=== PATIENT | female | born 1955 | race Caucasian/White ===

== ENCOUNTER 2016-10-24 06:01 | Day surgery (SDC) | payer MEDICARE ==
[~2016-10-24 06:01] MED LIST: Lactated Ringers 1,000 ML IV SCH
[2016-10-24] MEDS ORDERED: DIPRIVAN 200 MG/20 ML IV ONE (08:00)
[2016-10-24] MEDS ORDERED: Versed 2 MG/2 ML Injection IV ONE (08:00)
[2016-10-24 08:21] VITALS: PULSE 77; O2SAT 98
[2016-10-24 08:50] VITALS: BP 154/104
--- NOTE | 2016-10-24 09:12 | OP ---
SURGERY DATE/TIME: 10/24/2016717 PREOPERATIVE DIAGNOSIS: History of colon polyps. POSTOPERATIVE DIAGNOSIS: Rectal polyp. PROCEDURE: Colonoscopy with polypectomy. SURGEON: Dr. Mcdowell. ANESTHESIA: MAC. Medications given by anesthesia department. HISTORY: The patient is a 61 year-old white female presenting now for repeat colonoscopy. She reports that she has had two other procedures performed previously when she lived in [place]. The patient was felt the need to have re-investigation at this time. She was reappraised of the risks of the procedure including the risk of perforation, phlebitis, untoward reaction to medication, bleeding, and missed lesions. The patient verbalized her understanding and desired to have the procedure performed. DESCRIPTION OF PROCEDURE: The patient was given the medications by the anesthesia department. She had continuous pulse oximetry, ECG monitoring, intermittent blood pressure monitoring, and tidal CO2 monitoring during the examination. She was placed in the left lateral decubitus position. A digital rectal examination was performed and revealed normal anal sphincter tone and no masses. The flexible Olympus pediatric colonoscope was used to intubate the rectum. A view of the colon was developed sequentially to the cecum. Upon insertion and withdrawal, including a retroflex view in the rectum, there was noted one polyp in the rectum this measured approximately 1 cm in diameter. It was removed using polypectomy snare with cold technique. The polyp was obtained for pathologic evaluation. The scope was removed from the patient who tolerated the procedure well and was sent back to OP recovery in good condition. The prep was noted to be fair to good.
== END 2016-10-24 08:50 | disposition home or self-care (01) ==
LOC: SDC 06:01
PROVIDERS: ATTEND Family Medicine
PROC: 0DBP8ZX Excision of Rectum, Via Natural or Artificial Opening Endoscopic, Diagnostic (ICD-10-PCS; principal; 2016-10-24)
DX: K62.1 Rectal polyp (principal); I10 Essential (primary) hypertension; F41.9 Anxiety disorder, unspecified; E78.5 Hyperlipidemia, unspecified
CPT/HCPCS: 00810; 36415; 88305; J2250; J2704

== ENCOUNTER 2023-06-10 09:57 | Inpatient (IN) | payer MEDICARE ==
[2023-06-10] MEDS ORDERED: NORCO 5/325 MG PO ONE (10:20)
--- NOTE | 2023-06-10 10:30 | ERPHSYRPT ---
- History of Present Illness Time Seen by Provider: 06/10/23 10:15 Source: patient Exam Limitations: no limitations Patient Subjective Stated Complaint: pt here for pain to left foot since , no injury, pt has hx of surg on foot Triage Nursing Assessment: pt alert, walked in with a limp. resp easy, skin w.d.p, has open draining wound to left heel with swelling and redness. Physician History: 68yo f presents for 3d left heel pain w/ oozing wound. Pt reports she had a large blister on the heel that she popped w/ a needle on 06/07, woke up on 06/08 w/ sharp pain in the heel and yellow/green discharge from the wound. Pt states she is able to ambulate w/o much pain, does report pain when the area is rubbed by her shoe. Pt denies any fevers, pain in the foot or lower leg, cp, soa, n/v. Pt reports distant hx (>10yrs) of unknown surgical procedure on the left foot by podiatry. Method of Injury: other (popped blister w/ needle) Occurred: days ago (3) Quality: intermittent, stabbing Severity of Pain-Max: moderate Severity of Pain-Current: mild Lower Extremities Pain: heel: left Modifying Factors: Improves With: immobilization. Worsens With: movement Associated Symptoms: none Body Map: 1 - ulceration over left heel roughly [id number] Allergies/Adverse Reactions: No Known Drug Allergies Allergy (Verified 06/10/23 10:01) Home Medications: Atorvastatin Calcium [Lipitor] 40 mg PO HS 10/24/16 [History] Propranolol HCl [Innopran Xl] 120 mg PO DAILY 10/24/16 [History] Amlodipine Besylate 5 mg [Norvasc 5 mg] 1 ea DAILY 06/10/23 [History] Gabapentin [Neurontin ] 100 mg PO BID 06/10/23 [History] Levothyroxine Sodium 88 Mcg [Synthroid 88 Mcg] 88 mcg PO DAILY 06/10/23 [History] Lisinopril 10 mg [Zestril 10 MG] 10 mg PO DAILY 06/10/23 [History] Ubidecarenone [Coenzyme Q10] 100 mg PO BID 06/10/23 [History] Umeclidinium Brm/Vilanterol Tr [Anoro Ellipta 62.5-25 Mcg INH] 1 each IH DAILY 06/10/23 [History] Hx Tetanus, Diphtheria Vaccination/Date Given: No Hx Influenza Vaccination/Date Given: Yes Hx Pneumococcal Vaccination/Date Given: No Immunizations Up to Date: Yes Travel Risk - International Travel Have you traveled outside of the country in past 3 weeks: No - Coronavirus Screening Are you exhibiting any of the following symptoms?: No Close contact with a COVID-19 positive Pt in past 14-21 Days: No - Vaccine Status Have you recieved a Covid-19 vaccination: No - Review of Systems Constitutional: No Fever, No Chills, No Fatigue Respiratory: No Cough, No Dyspnea, No Wheezing Cardiac: No Chest Pain, No Edema Abdominal/Gastrointestinal: No Symptoms Genitourinary Symptoms: No Symptoms Skin: Skin Lesions, No Cellulitis, No Decubiti, No Rash - Past Medical History Pertinent Past Medical History: Yes Neurological History: Migraines ENT History: Cataracts Cardiac History: High Cholesterol, Hypertension Respiratory History: Asthma, COPD Endocrine Medical History: No Pertinent History Musculoskeletal History: Arthritis GI Medical History: No Pertinent History History: No Pertinent History Psycho-Social History: Anxiety, Depression Female Reproductive Disorders: No Pertinent History Other Medical History: bone spurs - Past Surgical History Past Surgical History: Yes Neuro Surgical History: No Pertinent History Cardiac: No Pertinent History Respiratory: No Pertinent History Gastrointestinal: Appendectomy, Cholecystectomy Genitourinary: No Pertinent History Musculoskeletal: No Pertinent History Female Surgical History: Tubal Ligation Other Surgical History: both feet bone spurs, cysts removed - Social History Smoking Status: Current every day smoker How long have you smoked: over 10 ye Exposure to second hand smoke: Yes Drug Use: marijuana Patient Lives Alone: No - Nursing Vital Signs Nursing Vital Signs: Initial Vital Signs Temperature 97.1 F 06/10/23 10:08 Pulse Rate 79 06/10/23 10:08 Respiratory Rate 18 06/10/23 10:08 Blood Pressure 163/79 06/10/23 10:08 O2 Sat by Pulse Oximetry 97 06/10/23 10:08 Pain Scale Pain Intensity 7 - Physical Exam General Appearance: no apparent distress, alert Cardiovascular/Respiratory Exam: chest non-tender, normal breath sounds, regular rate/rhythm Legs Exam: left leg: non-tender, normal inspection, normal range of motion, no evidence of injury Knees Exam: left knee: non-tender, normal inspection, normal range of motion, no evidence of injury Ankle Exam: left ankle: non-tender, normal range of motion, no evidence of injury, ecchymosis (swelling over posterior aspect of lateral malleolous) Foot Exam: left foot: abrasions/lacerations (2x2cm round area of ulcerated skin, darkened wound edges, approximately .5cm deep, moderate serosanguinous drainage ) Mental Status Exam: alert, oriented x 3 Skin Exam: abrasion, ecchymosis SpO2 Interpretation: normal SpO2: 97 O2 Delivery: Room Air Ordered Tests: Active Orders 24 hr Category Date Time Status Wound Care ROUTINE Care 06/10/23 10:17 Active ANKLE (3 VIEWS) Stat Exams 06/10/23 10:37 Taken FOOT (MINIMUM 3 VIEWS) Stat Exams 06/10/23 10:37 Taken CBC W DIFF Stat Lab 06/10/23 10:25 Completed CMP Stat Lab 06/10/23 10:25 Completed CULTURE,WOUND Stat Lab 06/10/23 11:59 Ordered Erythrocyte Sedimentation Rate Stat Lab 06/10/23 10:25 Completed Medication Summary Generic Name Dose Route Start Last Admin Trade Name Freq PRN Reason Stop Dose Admin Vancomycin HCl 1 gm in 200 mls @ 125 mls/hr 06/10/23 13:30 Vancomycin 1 Gram/200 Ml Bag IV 07/10/23 13:29 Q12H KARMEN Discontinued Medications Generic Name Dose Route Start Last Admin Trade Name Freq PRN Reason Stop Dose Admin Hydrocodone Bitart/Acetaminophen 1 tab 06/10/23 10:20 06/10/23 10:34 Hydrocodone/Apap 5/325 1 Tab Tablet PO 06/10/23 10:21 1 tab STAT ONE Administration Hydrocodone Bitart/Acetaminophen Confirm 06/10/23 10:32 Hydrocodone/Apap 5/325 1 Tab Tablet Administered 06/10/23 10:33 Dose 1 tab .ROUTE .STK-MED ONE Hydrocodone Bitart/Acetaminophen Confirm 06/10/23 10:33 Hydrocodone/Apap 5/325 1 Tab Tablet Administered 06/10/23 10:34 Dose 1 tab .ROUTE .STK-MED ONE Bacitracin Zinc Confirm 06/10/23 10:50 Bacitracin Packet 1 Each Pckt Administered 06/10/23 10:51 Dose 1 each .ROUTE .STK-MED ONE Lab/Rad Data: Laboratory Result Diagrams 06/10/23 10:25 06/10/23 10:25 Laboratory Results 06/10/23 06/10/23 06/10/23 Range/Units 10:25 10:25 10:25 WBC 12.5 H (4.0-10.5) x10^3/uL RBC 4.72 (4.1-5.4) x10^6/uL Hgb 14.8 (12.0-16.0) g/dL Hct 44.5 (35-47) % MCV 94.3 (78-100) fL MCH 31.4 (26-32) pg MCHC 33.3 (32-36) g/dL RDW 12.5 (11.5-14.0) % Plt Count 225 (150-450) x10^3/uL MPV 10.2 (7.5-11.0) fL Gran % 73.1 H (36.0-66.0) % Immature Gran % (Auto) 0.5 H (0.00-0.4) % Nucleat RBC Rel Count 0.0 (0.00-0.1) % Eos # (Auto) 0.16 (0-0.5) x10^3/uL Immature Gran # (Auto) 0.06 H (0.00-0.03) x10^3u/L Absolute Lymphs (auto) 1.51 (1.0-4.6) x10^3/uL Absolute Monos (auto) 1.59 H (0.0-1.3) x10^3/uL Absolute Nucleated RBC 0.00 (0.00-0.01) x10^3u/L Lymphocytes % 12.0 L (24.0-44.0) % Monocytes % 12.7 H (0.0-12.0) % Eosinophils % 1.3 (0.00-5.0) % Basophils % 0.4 (0.0-0.4) % Absolute Granulocytes 9.17 H (1.4-6.9) x10^3/uL Basophils # 0.05 (0-0.4) x10^3/uL ESR 92 H (0-20) mm/hr Sodium 135 L (137-145) mmol/L Potassium 4.0 (3.5-5.1) mmol/L Chloride 102 (98-107) mmol/L Carbon Dioxide 23 (22-30) mmol/L Anion Gap 14.3 (5-15) MEQ/L BUN 22 H (7-17) mg/dL Creatinine 1.44 H (0.52-1.04) mg/dL Estimated GFR 39.9 ML/MIN Glucose 112 H (74-106) mg/dL Calcium 9.6 (8.4-10.2) mg/dL Total Bilirubin 1.20 (0.2-1.3) mg/dL AST 22 (14-36) U/L ALT 21 (0-35) U/L Alkaline Phosphatase 122 (38-126) U/L Serum Total Protein 6.8 (6.3-8.2) g/dL Albumin 4.0 (3.5-5.0) g/dL - Progress Progress: unchanged Progress Note: 06/10/23 12:31 xr foot showed concern for osseous deterioration of posterior calcaneous, concern for osteomyelitis in setting of elevated wbc and ESR plan for admission for IV vancomycin and evaluation by podiatry 06/10/23 13:25 Dr Moulton accepting, vancomycin started Will see patient in: hospital (observation) Counseled pt/family regarding: lab results, diagnosis, need for follow-up, rad results Medical Desision Making - Discussion of managment Care discussed with:: hospitalist Reviewed:: Test results, Need for additional workup Agreed on:: Treatment plan, decision to admit Will see patient: in hospital - Diagnostic Testing Diagnostic test were ordered, analyzed, and reviewed by me: Yes Radiological Interpretation: Interpreted by me - Risk of complications The pt has a mod risk of morbidity or mortality based on: Need for prescription drug management, Need for minor surgical intervention in patient with know risk factors - Departure Departure Disposition: In-patient Admission Clinical Impression: Osteomyelitis Qualifiers: Osteomyelitis type: other acute Osteomyelitis location: foot Laterality: left Qualified Code(s): M86.172 - Other acute osteomyelitis, left ankle and foot Condition: Stable Critical Care Time: No Referrals: RICKEY GUZMAN DO [Primary Care Provider] - Follow up/PCP as directed
[2023-06-10] MEDS ORDERED: NORCO 5/325 MG ONE ×2 (10:32→10:33)
[2023-06-10 10:45] LABS: Absolute Neutrophil Ct (ANC) 9.17 x10^3/uL (1.4-6.9); BASOPHIL % 0.4 % (0.0-0.4); Basophil (Absolute #) 0.05 x10^3/uL (0-0.4); Eosinophil % 1.3 % (0.00-5.0); Eosinophil (Absolute #) 0.16 x10^3/uL (0-0.5); Hematocrit 44.5 % (35-47); Hemoglobin 14.8 g/dL (12.0-16.0); IMMATURE GRAN # 0.06 x10^3u/L (0.00-0.03); IMMATURE GRAN % 0.5 % (0.00-0.4); Lymphocyte (Absolute #) 1.51 x10^3/uL (1.0-4.6); Mean Cell Volume 94.3 fL (78-100); Mean Corpuscular Hemoglobin 31.4 pg (26-32); Mean Corpuscular Hgb Concent. 33.3 g/dL (32-36); Mean Platelet Volume 10.2 fL (7.5-11.0); Monocyte (Absolute #) 1.59 x10^3/uL (0.0-1.3); Monocytes % 12.7 % (0.0-12.0); Neutrophil % 73.1 % (36.0-66.0); Platelet Count 225 x10^3/uL (150-450); Red Blood Count 4.72 x10^6/uL (4.1-5.4); Red Cell Distribution Width 12.5 % (11.5-14.0); White Blood Count 12.5 x10^3/uL (4.0-10.5)
[2023-06-10] MEDS ORDERED: BACIGUENT PACKET ONE (10:50)
[2023-06-10 10:51] LABS: ANION GAP 14.3 MEQ/L (5-15); BILIRUBIN,TOTAL 1.2 mg/dL (0.2-1.3); Calcium 9.6 mg/dL (8.4-10.2); Creatinine 1 1.44 mg/dL (0.52-1.04); EST GLOMERULAR FILTRATION RATE 39.9 ML/MIN; Total Protein 6.8 g/dL (6.3-8.2)
[2023-06-10] MEDS: VANCOMYCIN 1 GRAM/200 ML BAG 1 GM/200 ML PIGGYBACK IV SCH (13:36)
--- NOTE | 2023-06-10 14:33 | PCM.HP ---
<GILLIAN HAYNES - Last Filed: 06/10/23 15:29> History of Present Illness - Chief Complaint Chief Complaint: left foot pain, veena Date: 06/10/23 History of Present Illness: is a 68 year old female with PMHX of hyperlipidemia, HTN, neuropathy, and hypothyroidism. She presented to the ER today for 3d left heel pain w/ oozing wound. Pt reports she had a large blister on the heel that she popped w/ a needle on 06/07, woke up on 06/08 w/ sharp pain in the heel and yellow/green discharge from the wound. Pt states she is able to ambulate w/o much pain, does report pain when the area is rubbed by her shoe. Pt denies any fevers, pain in the foot or lower leg, cp, SOB, n/v/d. Pt reports distant hx (>10yrs) of unknown surgical procedure on the left foot by podiatry. XR of foot and ankle pending. Pt started on vancomycin in ER. Wound culture pending. - Review of Systems Constitutional: No Fever, No Chills Eyes: No Symptoms Ears, Nose, & Throat: No Symptoms Respiratory: No Cough, No Short Of Breath Cardiac: Edema (edema of LLE), No Chest Pain, No Syncope Abdominal/Gastrointestinal: No Abdominal Pain, No Nausea, No Vomiting, No Diarrhea Genitourinary Symptoms: No Dysuria Musculoskeletal: No Back Pain, No Neck Pain Skin: Skin Lesions (left foot heel open areas with drainage), No Rash Neurological: No Dizziness, No Focal Weakness, No Sensory Changes Psychological: No Symptoms Endocrine: No Symptoms Hematologic/Lymphatic: No Symptoms Immunological/Allergic: No Symptoms Medications & Allergies Home Medications: Home Medication List Atorvastatin Calcium [Lipitor] 40 mg PO HS 10/24/16 [History Confirmed 06/10/23] Propranolol HCl [Innopran Xl] 120 mg PO DAILY 10/24/16 [History Confirmed 06/10/23] Albuterol Sulfate [Proair Digihaler] 90 mcg IH Q6H PRN 06/10/23 [History Confirmed 06/10/23] Amlodipine Besylate 5 mg [Norvasc 5 mg] 1 ea DAILY 06/10/23 [History Confirmed 06/10/23] Gabapentin [Neurontin ] 100 mg PO BID 06/10/23 [History Confirmed 06/10/23] Levothyroxine Sodium 88 Mcg [Synthroid 88 Mcg] 88 mcg PO DAILY 06/10/23 [History Confirmed 06/10/23] Lisinopril 10 mg [Zestril 10 MG] 10 mg PO DAILY 06/10/23 [History Confirmed 06/10/23] Ubidecarenone [Coenzyme Q10] 100 mg PO BID 06/10/23 [History Confirmed 06/10/23] Umeclidinium Brm/Vilanterol Tr [Anoro Ellipta 62.5-25 Mcg INH] 1 each IH DAILY 06/10/23 [History Confirmed 06/10/23] Allergies/Adverse Reactions: Allergies Allergy/AdvReac Type Severity Reaction Status Date / Time No Known Drug Allergies Allergy Verified 06/10/23 10:01 - Past Medical History Past Medical History: Yes Neurological History: Migraines ENT History: Cataracts Cardiac History: High Cholesterol, Hypertension Respiratory History: Asthma, COPD Endocrine Medical History: No Pertinent History Musculoskelatal History: Arthritis GI Medical History: Gallbladder Disease History: No Pertinent History Pyscho-Social History: Anxiety, Depression Reproductive Disorders: No Pertinent History Comment: bone spurs, pre-diabetic - Past Surgical History Past Surgical History: Yes Neuro Surgical History: No Pertinent History Cardiac History: No Pertinent History Respiratory Surgery: No Pertinent History GI Surgical History: Appendectomy, Cholecystectomy Genitourinary Surgical Hx: No Pertinent History Musculskeletal Surgical Hx: No Pertinent History Female Surgical History: Tubal Ligation Other Surgical History: both feet bone spurs, cysts removed, thyroid biopsy benign - Social History Smoking Status: Current every day smoker How long have you smoked: over 10 ye Exposure to second hand smoke: Yes Alcohol: None Drug Use: marijuana - Physical Exam Vital Signs: Vital Signs - 24 hr Temp Pulse Resp BP BP Pulse Ox 06/10/23 13:30 105/69 94 L 06/10/23 13:27 97 06/10/23 13:00 118/75 96 06/10/23 12:30 131/82 97 06/10/23 12:01 129/80 96 06/10/23 11:31 114/74 97 06/10/23 10:08 97.1 F 79 18 163/79 97 General Appearance: no apparent distress, alert Neurologic Exam: alert, oriented x 3, cooperative, normal mood/affect, nml cerebellar function, nml station & gait, sensation nml, No motor deficits Eye Exam: PERRL/EOMI, eyes nml inspection Ears, Nose, Throat Exam: normal ENT inspection, TMs normal, pharynx normal, moist mucous membranes Neck Exam: normal inspection, non-tender, supple, full range of motion Respiratory Exam: normal breath sounds, lungs clear, No respiratory distress Cardiovascular Exam: regular rate/rhythm, normal heart sounds, normal peripheral pulses, edema (LLE, increased warmth, no erythema) Gastrointestinal/Abdomen Exam: soft, normal bowel sounds, No tenderness, No mass Back Exam: normal inspection, normal range of motion, No CVA tenderness, No vertebral tenderness Extremity Exam: normal inspection, normal range of motion, pelvis stable, tenderness (left foot) Skin Exam: normal color, warm, dry, other (open area to left heel with drainage), No rash Lymphatic Exam: No adenopathy Results - Labs Lab/Micro Results: Lab Results-Last 24 Hours 06/10/23 06/10/23 06/10/23 Range/Units 10:25 10:25 10:25 WBC 12.5 H (4.0-10.5) x10^3/uL RBC 4.72 (4.1-5.4) x10^6/uL Hgb 14.8 (12.0-16.0) g/dL Hct 44.5 (35-47) % MCV 94.3 (78-100) fL MCH 31.4 (26-32) pg MCHC 33.3 (32-36) g/dL RDW 12.5 (11.5-14.0) % Plt Count 225 (150-450) x10^3/uL MPV 10.2 (7.5-11.0) fL Gran % 73.1 H (36.0-66.0) % Immature Gran % (Auto) 0.5 H (0.00-0.4) % Nucleat RBC Rel Count 0.0 (0.00-0.1) % Eos # (Auto) 0.16 (0-0.5) x10^3/uL Immature Gran # (Auto) 0.06 H (0.00-0.03) x10^3u/L Absolute Lymphs (auto) 1.51 (1.0-4.6) x10^3/uL Absolute Monos (auto) 1.59 H (0.0-1.3) x10^3/uL Absolute Nucleated RBC 0.00 (0.00-0.01) x10^3u/L Lymphocytes % 12.0 L (24.0-44.0) % Monocytes % 12.7 H (0.0-12.0) % Eosinophils % 1.3 (0.00-5.0) % Basophils % 0.4 (0.0-0.4) % Absolute Granulocytes 9.17 H (1.4-6.9) x10^3/uL Basophils # 0.05 (0-0.4) x10^3/uL ESR 92 H (0-20) mm/hr Sodium 135 L (137-145) mmol/L Potassium 4.0 (3.5-5.1) mmol/L Chloride 102 (98-107) mmol/L Carbon Dioxide 23 (22-30) mmol/L Anion Gap 14.3 (5-15) MEQ/L BUN 22 H (7-17) mg/dL Creatinine 1.44 H (0.52-1.04) mg/dL Estimated GFR 39.9 ML/MIN Glucose 112 H (74-106) mg/dL Calcium 9.6 (8.4-10.2) mg/dL Total Bilirubin 1.20 (0.2-1.3) mg/dL AST 22 (14-36) U/L ALT 21 (0-35) U/L Alkaline Phosphatase 122 (38-126) U/L Serum Total Protein 6.8 (6.3-8.2) g/dL Albumin 4.0 (3.5-5.0) g/dL - Radiology Impressions Radiology Exams & Impressions: Radiology Procedures Category Date Time Status ANKLE (3 VIEWS) Stat Exams 06/10/23 10:37 Taken FOOT (MINIMUM 3 VIEWS) Stat Exams 06/10/23 10:37 Taken Assessment/Plan (1) Open wound of heel Current Visit: Yes Status: Acute Qualifiers: Encounter type: initial encounter Laterality: left Qualified Code(s): S91.302A - Unspecified open wound, left foot, initial encounter Assessment & Plan: - XR of foot and heel pending - Consider MRI to r/o osteomyelitis - unable to do on the weakened - Pt reports screws in LLE placed over [address] Marcano with podiatry- she is unsure of they are MRI compatible. Will Obtain old records. - ESR elevated - CRP pending - Podiatry consult - Wound culture pending - Vancomycin started in ER- continue - Narcotic pain medication - Pain / - tylenol for fever - zofran for nausea PRN - BC x2 pending - WBC 12.5 - Last Tetnus> 5 yrs ago- booster ordered Code(s): S91.309A - UNSPECIFIED OPEN WOUND, UNSPECIFIED FOOT, INITIAL ENCOUNTER (2) VEENA (acute kidney injury) Current Visit: Yes Status: Acute Assessment & Plan: - Creat 1.44, BUN 22, GFR 39.9 - Baseline creat 1.05 - IVF Code(s): N17.9 - ACUTE KIDNEY FAILURE, UNSPECIFIED (3) HTN (hypertension) Current Visit: Yes Status: Chronic Assessment & Plan: - BP stable - Continue home meds Code(s): I10 - ESSENTIAL (PRIMARY) HYPERTENSION (4) Hypothyroidism Current Visit: Yes Status: Chronic Assessment & Plan: - continue synthroid Code(s): E03.9 - HYPOTHYROIDISM, UNSPECIFIED (5) Neuropathy Current Visit: Yes Status: Acute Assessment & Plan: - continue gabapentin VTE: SCD PPI: protonix Next of Kin: , D/C plan: pending ortho eval Monday Code status: Full Code(s): G62.9 - POLYNEUROPATHY, UNSPECIFIED <GRACIA AHUJA - Last Filed: 06/10/23 15:40> History of Present Illness - Chief Complaint History of Present Illness: is a 68 year old female. - Physical Exam Vital Signs: Vital Signs - 24 hr Temp Pulse Resp BP BP Pulse Ox 06/10/23 15:33 71 16 97 06/10/23 14:19 97.1 F 71 17 128/69 95 06/10/23 13:30 105/69 94 L 06/10/23 13:27 97 06/10/23 13:00 118/75 96 06/10/23 12:30 131/82 97 06/10/23 12:01 129/80 96 06/10/23 11:31 114/74 97 06/10/23 10:08 97.1 F 79 18 163/79 97 Results - Labs Lab/Micro Results: Lab Results-Last 24 Hours 06/10/23 06/10/23 06/10/23 Range/Units 10:25 10:25 10:25 WBC 12.5 H (4.0-10.5) x10^3/uL RBC 4.72 (4.1-5.4) x10^6/uL Hgb 14.8 (12.0-16.0) g/dL Hct 44.5 (35-47) % MCV 94.3 (78-100) fL MCH 31.4 (26-32) pg MCHC 33.3 (32-36) g/dL RDW 12.5 (11.5-14.0) % Plt Count 225 (150-450) x10^3/uL MPV 10.2 (7.5-11.0) fL Gran % 73.1 H (36.0-66.0) % Immature Gran % (Auto) 0.5 H (0.00-0.4) % Nucleat RBC Rel Count 0.0 (0.00-0.1) % Eos # (Auto) 0.16 (0-0.5) x10^3/uL Immature Gran # (Auto) 0.06 H (0.00-0.03) x10^3u/L Absolute Lymphs (auto) 1.51 (1.0-4.6) x10^3/uL Absolute Monos (auto) 1.59 H (0.0-1.3) x10^3/uL Absolute Nucleated RBC 0.00 (0.00-0.01) x10^3u/L Lymphocytes % 12.0 L (24.0-44.0) % Monocytes % 12.7 H (0.0-12.0) % Eosinophils % 1.3 (0.00-5.0) % Basophils % 0.4 (0.0-0.4) % Absolute Granulocytes 9.17 H (1.4-6.9) x10^3/uL Basophils # 0.05 (0-0.4) x10^3/uL ESR 92 H (0-20) mm/hr Sodium 135 L (137-145) mmol/L Potassium 4.0 (3.5-5.1) mmol/L Chloride 102 (98-107) mmol/L Carbon Dioxide 23 (22-30) mmol/L Anion Gap 14.3 (5-15) MEQ/L BUN 22 H (7-17) mg/dL Creatinine 1.44 H (0.52-1.04) mg/dL Estimated GFR 39.9 ML/MIN Glucose 112 H (74-106) mg/dL Calcium 9.6 (8.4-10.2) mg/dL Total Bilirubin 1.20 (0.2-1.3) mg/dL AST 22 (14-36) U/L ALT 21 (0-35) U/L Alkaline Phosphatase 122 (38-126) U/L Serum Total Protein 6.8 (6.3-8.2) g/dL Albumin 4.0 (3.5-5.0) g/dL - Radiology Impressions Radiology Exams & Impressions: Radiology Procedures Category Date Time Status ANKLE (3 VIEWS) Stat Exams 06/10/23 10:37 Taken FOOT (MINIMUM 3 VIEWS) Stat Exams 06/10/23 10:37 Taken - Other Procedures and Tests Respiratory Therapy 06/10/23 15:33 Respiratory Therapy Assessment DAILY
[2023-06-10] MEDS ORDERED: TYLENOL 325 MG PO PRN (15:31)
[2023-06-10] MEDS ORDERED: Zofran 4 MG/2 ML VIAL IV PRN (15:31)
[2023-06-10] MEDS ORDERED: TETANUS IMMUNE GLOBULIN 250 UNIT IM ONE (15:32)
[2023-06-10] MEDS ORDERED: MEDICATION INTERVENTION MC SCH ×2 (15:45)
[2023-06-10] MEDS: Sodium Chloride 0.9% 1000 ML 1,000 ML IV SCH (15:58)
[2023-06-10] MEDS: PROTONIX 40 MG IV IV SCH (16:00)
[2023-06-10] MEDS: NORCO 5/325 MG PO PRN ×2 (16:42→21:32)
[2023-06-10] MEDS ORDERED: Adacel Vial IM ONE (17:00)
--- NOTE | 2023-06-10 20:11 | XRAY ---
Indication: Swelling and infection draining. Comparison: None 3 nonweightbearing views left foot demonstrates osteopenia, mild 1st tarsometatarsal degenerative changes, posterior calcaneal surgery with orthopedic screw/heterotopic ossifications, tiny plantar heel spur, and small cuboid accessory ossicle. No other bony, articular, or soft tissue abnormalities.
--- NOTE | 2023-06-10 20:11 | XRAY ---
Indication: Swelling and infection draining. Comparison: None 3 view left ankle demonstrates small focus subcutaneous air posterior to calcaneus presumed know infection. Elswhere osteopenia, posterior calcaneal surgery with orthopedic screw/heterotopic ossifications, tiny plantar heel spur, and diffuse soft tissue swelling.
[2023-06-10] MEDS: ZOCOR 20MG PO SCH (21:32)
[2023-06-10] MEDS: Neurontin PO SCH (21:32)
[2023-06-10] MEDS ORDERED: LIPITOR 40MG PO SCH (22:00)
[2023-06-10] MEDS ORDERED: UBIDECARENONE 100 MG PO SCH (22:00)
[2023-06-10] MEDS ORDERED: PIPERACILLIN/TAZOBACTAM IV ONE (22:54)
[2023-06-10] MEDS ORDERED: Sodium Chloride 100ML MINI-BAG PLUS 100 ML IV ONE (22:55)
[2023-06-10] MEDS: PIPERACILLIN/TAZOBACTAM 3.375 GM in Sodium Chloride 100ML MINI-BAG PLUS 100 ML IV SCH (22:58)
[2023-06-10] MEDS: Hydromorphone 1 mg/ml Injection IV PRN (23:04)
[2023-06-11] MEDS: VANCOMYCIN 1 GRAM/200 ML BAG 1 GM/200 ML PIGGYBACK IV SCH ×3 (01:32→23:14)
[2023-06-11] MEDS: Sodium Chloride 0.9% 1000 ML 1,000 ML IV SCH (03:55)
[2023-06-11] MEDS ORDERED: PIPERACILLIN/TAZOBACTAM IV ONE (06:02)
[2023-06-11] MEDS ORDERED: Sodium Chloride 100ML MINI-BAG PLUS 100 ML IV ONE (06:03)
[2023-06-11] MEDS: PIPERACILLIN/TAZOBACTAM 3.375 GM in Sodium Chloride 100ML MINI-BAG PLUS 100 ML IV SCH ×3 (06:04→21:45)
[2023-06-11] MEDS ORDERED: Lactated Ringers 1,000 ML IV ONE (06:58)
[2023-06-11] MEDS ORDERED: DIPRIVAN 200 MG/20 ML IV ONE (07:07)
[2023-06-11] MEDS ORDERED: TORAdol 30 mg Injection ONE (07:07)
[2023-06-11] MEDS ORDERED: BRIDION 200MG/2ML IV ONE (07:07)
[2023-06-11] MEDS ORDERED: Decadron 4 MG INJ ONE (07:07)
[2023-06-11] MEDS ORDERED: Zofran 4 MG/2 ML VIAL ONE (07:07)
[2023-06-11] MEDS ORDERED: Zemuron 100 MG/10 ML ONE (07:07)
[2023-06-11] MEDS ORDERED: Xylocaine-Mpf 2% 5 Ml Vial ONE (07:07)
[2023-06-11] MEDS ORDERED: SUBLIMAZE 100 MCG/2 ML ONE ×2 (07:07→08:23)
[2023-06-11] MEDS ORDERED: Marcaine Mpf 0.5% Vial 30 Ml ONE (07:10)
[2023-06-11] MEDS ORDERED: Xylocaine 1% Vial 30 ML PF IJ ONE (07:10)
--- NOTE | 2023-06-11 07:13 | PCM.CONS ---
Podiatry HPI - Consult Date of Consultation Date: 06/10/23 Reason for Consult: Osteomyelitis left heel. Hx of multiple surgical interventions With infection Consulting Provider: YADIRA PEDERSEN DPM - [facility] History of Present Illness: Ms. Casillas is a very pleasant 68-year-old female with significant medical history of tobacco dependence HLD, hypothyroidism and prediabetes who was admitted for left heel pain with a draining sinus to left calcaneus. She presented to the ER today for 3d left heel pain w/ oozing wound. Pt reports she had a large blister on the heel that she popped w/ a needle on 06/07, woke up on 06/08 w/ sharp pain in the heel and yellow/green discharge from the wound. Pt states she is able to ambulate w/o much pain, does report pain when the area is rubbed by her shoe.. Patient does indicate that she did have surgical intervention with Dr. Marcano approximately 7 to 10 years ago where there were multiple interventions with infection of E. coli and patient was to remain nonweightbearing for approximately 1 year before able to have use of the extremity again. At this time patient does have a significant amount of pain. She endorses being a cigarette smoker. She denies being a diabetic however she does indicate that she is prediabetic and is managed by Dr. Fabio Adams MD. She currently denies any other complaints. Medications & Allergies Home Medications: Home Medication List Atorvastatin Calcium [Lipitor] 40 mg PO HS 10/24/16 [History Confirmed 06/10/23] Propranolol HCl [Innopran Xl] 120 mg PO DAILY 10/24/16 [History Confirmed 06/10/23] Albuterol Sulfate [Proair Digihaler] 90 mcg IH Q6H PRN 06/10/23 [History Confirmed 06/10/23] Amlodipine Besylate 5 mg [Norvasc 5 mg] 1 ea DAILY 06/10/23 [History Confirmed 06/10/23] Gabapentin [Neurontin ] 100 mg PO BID 06/10/23 [History Confirmed 06/10/23] Levothyroxine Sodium 88 Mcg [Synthroid 88 Mcg] 88 mcg PO DAILY 06/10/23 [History Confirmed 06/10/23] Lisinopril 10 mg [Zestril 10 MG] 10 mg PO DAILY 06/10/23 [History Confirmed 06/10/23] Ubidecarenone [Coenzyme Q10] 100 mg PO BID 06/10/23 [History Confirmed 06/10/23] Umeclidinium Brm/Vilanterol Tr [Anoro Ellipta 62.5-25 Mcg INH] 1 each IH DAILY 06/10/23 [History Confirmed 06/10/23] Allergies/Adverse Reactions: Allergies Allergy/AdvReac Type Severity Reaction Status Date / Time No Known Drug Allergies Allergy Verified 06/10/23 10:01 - Past Medical History Past Medical History: Yes Neurological History: Migraines ENT History: Cataracts Cardiac History: High Cholesterol, Hypertension Respiratory History: Asthma, COPD Endocrine Medical History: No Pertinent History Musculoskelatal History: Arthritis GI Medical History: Gallbladder Disease History: No Pertinent History Pyscho-Social History: Anxiety, Depression Reproductive Disorders: No Pertinent History Comment: bone spurs, pre-diabetic - Past Surgical History Past Surgical History: Yes Neuro Surgical History: No Pertinent History Cardiac History: No Pertinent History Respiratory Surgery: No Pertinent History GI Surgical History: Appendectomy, Cholecystectomy Genitourinary Surgical Hx: No Pertinent History Musculskeletal Surgical Hx: No Pertinent History Female Surgical History: Tubal Ligation Other Surgical History: both feet bone spurs, cysts removed, thyroid biopsy benign - Social History Smoking Status: Current every day smoker How long have you smoked: over 10 ye Exposure to second hand smoke: Yes Alcohol: None Drug Use: marijuana Physical Exam - General General Appearance: no apparent distress, alert - Neuro Neurologic: Epicritic and protopathic (Relatively intact) - Vascular Peripheral Pulses: Posterior tibialis: 2+ (Dopplerable as biphasic), Dorsalis-P elias: 1+ Capillary Refill Time: < 3 seconds (Triphasic Perforating peroneal) Hair Growth: Symmetrical and Bilateral Varicosities: Negtive Skin: Supple, not atrophic Skin Temperature: Hot to touch (LLE) - Narrative Narrative Physical Exam: Podiatry Physical Exam Results - Labs Lab/Micro Results: Lab Results-Last 24 Hours 06/10/23 06/10/23 06/10/23 Range/Units 10:25 10:25 10:25 WBC 12.5 H (4.0-10.5) x10^3/uL RBC 4.72 (4.1-5.4) x10^6/uL Hgb 14.8 (12.0-16.0) g/dL Hct 44.5 (35-47) % MCV 94.3 (78-100) fL MCH 31.4 (26-32) pg MCHC 33.3 (32-36) g/dL RDW 12.5 (11.5-14.0) % Plt Count 225 (150-450) x10^3/uL MPV 10.2 (7.5-11.0) fL Gran % 73.1 H (36.0-66.0) % Immature Gran % (Auto) 0.5 H (0.00-0.4) % Nucleat RBC Rel Count 0.0 (0.00-0.1) % Eos # (Auto) 0.16 (0-0.5) x10^3/uL Immature Gran # (Auto) 0.06 H (0.00-0.03) x10^3u/L Absolute Lymphs (auto) 1.51 (1.0-4.6) x10^3/uL Absolute Monos (auto) 1.59 H (0.0-1.3) x10^3/uL Absolute Nucleated RBC 0.00 (0.00-0.01) x10^3u/L Lymphocytes % 12.0 L (24.0-44.0) % Monocytes % 12.7 H (0.0-12.0) % Eosinophils % 1.3 (0.00-5.0) % Basophils % 0.4 (0.0-0.4) % Absolute Granulocytes 9.17 H (1.4-6.9) x10^3/uL Basophils # 0.05 (0-0.4) x10^3/uL ESR 92 H (0-20) mm/hr Sodium 135 L (137-145) mmol/L Potassium 4.0 (3.5-5.1) mmol/L Chloride 102 (98-107) mmol/L Carbon Dioxide 23 (22-30) mmol/L Anion Gap 14.3 (5-15) MEQ/L BUN 22 H (7-17) mg/dL Creatinine 1.44 H (0.52-1.04) mg/dL Estimated GFR 39.9 ML/MIN Glucose 112 H (74-106) mg/dL Hemoglobin A1c (4.5-6.0) % Calcium 9.6 (8.4-10.2) mg/dL Total Bilirubin 1.20 (0.2-1.3) mg/dL AST 22 (14-36) U/L ALT 21 (0-35) U/L Alkaline Phosphatase 122 (38-126) U/L Serum Total Protein 6.8 (6.3-8.2) g/dL Albumin 4.0 (3.5-5.0) g/dL 06/10/23 06/10/23 Range/Units 19:45 19:45 WBC (4.0-10.5) x10^3/uL RBC (4.1-5.4) x10^6/uL Hgb (12.0-16.0) g/dL Hct (35-47) % MCV (78-100) fL MCH (26-32) pg MCHC (32-36) g/dL RDW (11.5-14.0) % Plt Count (150-450) x10^3/uL MPV (7.5-11.0) fL Gran % (36.0-66.0) % Immature Gran % (Auto) (0.00-0.4) % Nucleat RBC Rel Count (0.00-0.1) % Eos # (Auto) (0-0.5) x10^3/uL Immature Gran # (Auto) (0.00-0.03) x10^3u/L Absolute Lymphs (auto) (1.0-4.6) x10^3/uL Absolute Monos (auto) (0.0-1.3) x10^3/uL Absolute Nucleated RBC (0.00-0.01) x10^3u/L Lymphocytes % (24.0-44.0) % Monocytes % (0.0-12.0) % Eosinophils % (0.00-5.0) % Basophils % (0.0-0.4) % Absolute Granulocytes (1.4-6.9) x10^3/uL Basophils # (0-0.4) x10^3/uL ESR 62 H (0-20) mm/hr Sodium (137-145) mmol/L Potassium (3.5-5.1) mmol/L Chloride (98-107) mmol/L Carbon Dioxide (22-30) mmol/L Anion Gap (5-15) MEQ/L BUN (7-17) mg/dL Creatinine (0.52-1.04) mg/dL Estimated GFR ML/MIN Glucose (74-106) mg/dL Hemoglobin A1c 5.52 (4.5-6.0) % Calcium (8.4-10.2) mg/dL Total Bilirubin (0.2-1.3) mg/dL AST (14-36) U/L ALT (0-35) U/L Alkaline Phosphatase (38-126) U/L Serum Total Protein (6.3-8.2) g/dL Albumin (3.5-5.0) g/dL - Radiology Impressions Radiology Exams & Impressions: Radiology Procedures Category Date Time Status DONNA/SEG PRESSURE UNILAT [US] Routine Exams 06/12/23 08:00 Ordered ANKLE (3 VIEWS) Stat Exams 06/10/23 10:37 Completed ARTERIAL UNILAT/LTD LOWER EXT [US] Routine Exams 06/12/23 08:00 Ordered FLUOROSCOPY UP TO 1 HR Routine Exams 06/11/23 06:39 Ordered FOOT (2 VIEWS) Routine Exams 06/11/23 06:39 Ordered FOOT (MINIMUM 3 VIEWS) Stat Exams 06/10/23 10:37 Completed - Other Procedures and Tests Respiratory Therapy 06/10/23 15:33 Respiratory Therapy Assessment DAILY Assessment/Plan (1) Neuropathy Current Visit: Yes Status: Acute Code(s): G62.9 - POLYNEUROPATHY, UNSPECIFIED (2) Open wound of heel Current Visit: Yes Status: Acute Qualifiers: Encounter type: initial encounter Laterality: left Qualified Code(s): S91.302A - Unspecified open wound, left foot, initial encounter Assessment & Plan: Initial patient examination evaluation. Radiographs reviewed and discussed with patient given patient does have a wound that apparently does probe to bone in the setting of previous surgical intervention where there was infection recommendation is to proceed with surgical intervention in order to debride the Achilles tendon and offload bacterial bioburden, obtain bone biopsies and potentially remove some hardware from a the left calcaneus. Patient has had pain over the course of the last 10 years for which I suspect residual infection versus under correction as the etiology. At this time proceeding with surgical intervention would be to attempt to eradicate infection in the bone and attempts at salvage. Vancomycin started in the emergency department. Start Zosyn 3.375 g every 8 hours Patient will likely need 6 to 8 weeks of IV antibiotics Patient will likely need to remain nonweightbearing to the left lower extremity during this period of time soft tissue cultures obtained awaiting preliminary and culture and sensitivity. We will be awaiting bone biopsies and more importantly bone cultures at that time to determine antibiotic course. Hemoglobin A1c, CBC, CMP, ESR, CRP, albumin, prealbumin, serum nicotine/cotinine Noninvasive vascular studies arterial Dopplers and ABIs pending Offloading heels to be of the utmost importance to prevent further breakdown of left heel Patient not n.p.o. as of 1700 and though urgent not emergent at the moment to proceed with surgical intervention will proceed with surgical intervention at 0 700 06/11/2023 N.p.o. order for midnight only allowing small sips for medications Will plan to proceed with surgical intervention at this time in order to to alleviate patient's pain and reduce the chance of further spread. Informed consent to read incision and drainage with bone debridement to left calcaneus with calcaneal osteotomy possible hardware removal Achilles tendon debridement with open packing. Patient understands all risks complications and benefits of surgical intervention at this time including but not limited to infection hematoma seroma possibility of delayed wound healing on wound healing and possible need for further surgical intervention at a later date this is almost a guarantee as I assume this will be a staged procedure given the extent of the infection and the previous surgical history. Recommendation is for intermediate facility however patient is hesitant. Consult social security specialist for possible placement Proceeding with surgical intervention at this time with possibility of returning to the OR on Monday for secondary washout depending on appearance today Will follow with you Code(s): S91.309A - UNSPECIFIED OPEN WOUND, UNSPECIFIED FOOT, INITIAL ENCOUNTER (3) Osteomyelitis Current Visit: Yes Status: Acute Qualifiers: Osteomyelitis type: other acute Osteomyelitis location: foot Laterality: left Qualified Code(s): M86.172 - Other acute osteomyelitis, left ankle and foot Code(s): M86.9 - OSTEOMYELITIS, UNSPECIFIED (4) HTN (hypertension) Current Visit: Yes Status: Chronic Code(s): I10 - ESSENTIAL (PRIMARY) HYPERTENSION (5) Hypothyroidism Current Visit: Yes Status: Chronic Code(s): E03.9 - HYPOTHYROIDISM, UNSPECIFIED
[2023-06-11] MEDS ORDERED: KEFZOL 1 GM ONE (07:46)
[2023-06-11] MEDS ORDERED: Sodium Chloride 0.9% 1000 ML 1,000 ML ONE (08:29)
--- NOTE | 2023-06-11 09:24 | PCM.NOTE ---
Podiatry Post-Op Plan Podiatry Post-Op Plan: Podiatry Post-Op Plan Post-operative plan is as follows: ANTIBIOTICS: Vancomycin/zosyn for now/ Preliminary demonstrating gram positive but likely superficial culture. Awaiting deep cultures from intraop and bone cultures. PAIN CONTROL: Vaughn q4h moderate pain. hydromorphone 2 mg q3h severe pain. VTE PROPHYLAXIS: Aspirin 325mg PO daily DRESSINGS: Dressing to remain clean and dry. Reinforce with Kerlix/DAR as necessary. ACTIVITY: NWB to operative side. THERAPIES: PT/OT consult for gait training, assistive device training, and assessment of functional status with NWB to the left leg. PLACEMENT: CM consult for evaluation and possible SNF/Rehab placement. Patient reluctant.
--- NOTE | 2023-06-11 09:39 | PCM.NOTE ---
Date and Time: 06/11/23 0934 Subjective Assessment: 06/10/23 is a 68 year old female with PMHX of hyperlipidemia, HTN, neuropathy, and hypothyroidism. She presented to the ER today for 3d left heel pain w/ oozing wound. Pt reports she had a large blister on the heel that she popped w/ a needle on 06/07, woke up on 06/08 w/ sharp pain in the heel and yellow/green discharge from the wound. Pt states she is able to ambulate w/o much pain, does report pain when the area is rubbed by her shoe. Pt denies any fevers, pain in the foot or lower leg, cp, SOB, n/v/d. Pt reports distant hx (>10yrs) of unknown surgical procedure on the left foot by podiatry. XR of foot and ankle pending. Pt started on vancomycin in ER. Wound culture pending. 06/11/23 Pt resting in bed. She had surgery today with podiatry for osteomyelitis of left ankle and foot. Pt is getting zosyn, vancomycin and narcotic pain control. She is to be NWB on operative side. Will have her work with PT/OT and consider rehab at d/c. She denies CP, SOB, abd. pain, N/V/D. - Review of Systems Constitutional: No Fever, No Chills Eyes: No Symptoms Ears, Nose, & Throat: No Symptoms Respiratory: No Cough, No Short Of Breath Cardiac: No Chest Pain, No Edema, No Syncope Abdominal/Gastrointestinal: No Abdominal Pain, No Nausea, No Vomiting, No Diarrhea Genitourinary Symptoms: No Dysuria Musculoskeletal: No Back Pain, No Neck Pain Skin: Other (pain of left foot and ankle- wound), No Rash Neurological: No Dizziness, No Focal Weakness, No Sensory Changes Psychological: No Symptoms Endocrine: No Symptoms Hematologic/Lymphatic: No Symptoms Immunological/Allergic: No Symptoms Objective Exam General Appearance: no apparent distress, alert Neurologic Exam: alert, oriented x 3, cooperative, normal mood/affect, nml cerebellar function, sensation nml, No motor deficits Skin Exam: normal color, warm, dry Eye Exam: PERRL, EOMI, eyes nml inspection Ears, Nose, Throat Exam: normal ENT inspection, pharynx normal, moist mucous membranes Neck Exam: normal inspection, non-tender, supple, full range of motion Respiratory Exam: normal breath sounds, lungs clear, No respiratory distress Cardiovascular Exam: regular rate/rhythm, normal heart sounds Gastrointestinal/Abdomen Exam: soft, No tenderness, No mass Extremity Exam: normal inspection, normal range of motion, swelling, tenderness, other (Pain of left foot/ ankle post op surgery- wrapped See pics in chart) Back Exam: normal inspection, normal range of motion, No CVA tenderness, No vertebral tenderness Pelvic Exam: deferred Rectal Exam: deferred OBJECTIVE DATA Vital Signs: Vital Signs - 24 hr Temp Pulse Resp BP BP Pulse Ox 06/11/23 06:41 98.4 F 79 17 122/66 95 06/11/23 05:38 99.1 F 85 16 125/89 96 06/11/23 04:00 99.1 F 85 16 125/89 96 06/11/23 03:48 99.1 F 90 16 98/53 95 06/11/23 00:00 99.1 F 90 16 98/53 95 06/10/23 20:36 79 18 95 06/10/23 20:00 97.9 F 75 18 135/60 96 06/10/23 16:29 97.2 F 72 18 129/71 97 06/10/23 15:33 71 16 97 06/10/23 14:19 97.1 F 71 17 128/69 95 06/10/23 13:30 105/69 94 L 06/10/23 13:27 97 06/10/23 13:00 118/75 96 06/10/23 12:30 131/82 97 06/10/23 12:01 129/80 96 06/10/23 11:31 114/74 97 06/10/23 10:08 97.1 F 79 18 163/79 97 Pain Assessment - Last Documented Pain Intensity 6 Pain Scale Used 0-10 Pain Scale Intake and Output: Intake & Output 06/08/23 06/09/23 06/10/23 06/11/23 11:59 11:59 11:59 11:59 Intake Total 190 Balance 190 Weight 80.739 kg 83.2 kg Lab Results: Lab Results-Last 24 Hours 06/10/23 06/10/23 06/10/23 Range/Units 10:25 10:25 10:25 WBC 12.5 H (4.0-10.5) x10^3/uL RBC 4.72 (4.1-5.4) x10^6/uL Hgb 14.8 (12.0-16.0) g/dL Hct 44.5 (35-47) % MCV 94.3 (78-100) fL MCH 31.4 (26-32) pg MCHC 33.3 (32-36) g/dL RDW 12.5 (11.5-14.0) % Plt Count 225 (150-450) x10^3/uL MPV 10.2 (7.5-11.0) fL Gran % 73.1 H (36.0-66.0) % Immature Gran % (Auto) 0.5 H (0.00-0.4) % Nucleat RBC Rel Count 0.0 (0.00-0.1) % Eos # (Auto) 0.16 (0-0.5) x10^3/uL Immature Gran # (Auto) 0.06 H (0.00-0.03) x10^3u/L Absolute Lymphs (auto) 1.51 (1.0-4.6) x10^3/uL Absolute Monos (auto) 1.59 H (0.0-1.3) x10^3/uL Absolute Nucleated RBC 0.00 (0.00-0.01) x10^3u/L Lymphocytes % 12.0 L (24.0-44.0) % Monocytes % 12.7 H (0.0-12.0) % Eosinophils % 1.3 (0.00-5.0) % Basophils % 0.4 (0.0-0.4) % Absolute Granulocytes 9.17 H (1.4-6.9) x10^3/uL Basophils # 0.05 (0-0.4) x10^3/uL ESR 92 H (0-20) mm/hr Sodium 135 L (137-145) mmol/L Potassium 4.0 (3.5-5.1) mmol/L Chloride 102 (98-107) mmol/L Carbon Dioxide 23 (22-30) mmol/L Anion Gap 14.3 (5-15) MEQ/L BUN 22 H (7-17) mg/dL Creatinine 1.44 H (0.52-1.04) mg/dL Estimated GFR 39.9 ML/MIN Glucose 112 H (74-106) mg/dL Hemoglobin A1c (4.5-6.0) % Calcium 9.6 (8.4-10.2) mg/dL Total Bilirubin 1.20 (0.2-1.3) mg/dL AST 22 (14-36) U/L ALT 21 (0-35) U/L Alkaline Phosphatase 122 (38-126) U/L Serum Total Protein 6.8 (6.3-8.2) g/dL Albumin 4.0 (3.5-5.0) g/dL 06/10/23 06/10/23 Range/Units 19:45 19:45 WBC (4.0-10.5) x10^3/uL RBC (4.1-5.4) x10^6/uL Hgb (12.0-16.0) g/dL Hct (35-47) % MCV (78-100) fL MCH (26-32) pg MCHC (32-36) g/dL RDW (11.5-14.0) % Plt Count (150-450) x10^3/uL MPV (7.5-11.0) fL Gran % (36.0-66.0) % Immature Gran % (Auto) (0.00-0.4) % Nucleat RBC Rel Count (0.00-0.1) % Eos # (Auto) (0-0.5) x10^3/uL Immature Gran # (Auto) (0.00-0.03) x10^3u/L Absolute Lymphs (auto) (1.0-4.6) x10^3/uL Absolute Monos (auto) (0.0-1.3) x10^3/uL Absolute Nucleated RBC (0.00-0.01) x10^3u/L Lymphocytes % (24.0-44.0) % Monocytes % (0.0-12.0) % Eosinophils % (0.00-5.0) % Basophils % (0.0-0.4) % Absolute Granulocytes (1.4-6.9) x10^3/uL Basophils # (0-0.4) x10^3/uL ESR 62 H (0-20) mm/hr Sodium (137-145) mmol/L Potassium (3.5-5.1) mmol/L Chloride (98-107) mmol/L Carbon Dioxide (22-30) mmol/L Anion Gap (5-15) MEQ/L BUN (7-17) mg/dL Creatinine (0.52-1.04) mg/dL Estimated GFR ML/MIN Glucose (74-106) mg/dL Hemoglobin A1c 5.52 (4.5-6.0) % Calcium (8.4-10.2) mg/dL Total Bilirubin (0.2-1.3) mg/dL AST (14-36) U/L ALT (0-35) U/L Alkaline Phosphatase (38-126) U/L Serum Total Protein (6.3-8.2) g/dL Albumin (3.5-5.0) g/dL Radiology Exams: Radiology Procedures Category Date Time Status DONNA/SEG PRESSURE UNILAT [US] Routine Exams 06/12/23 08:00 Ordered ANKLE (3 VIEWS) Stat Exams 06/10/23 10:37 Completed ARTERIAL UNILAT/LTD LOWER EXT [US] Routine Exams 06/12/23 08:00 Ordered FLUOROSCOPY UP TO 1 HR Routine Exams 06/11/23 07:53 Taken FOOT (2 VIEWS) Routine Exams 06/11/23 07:48 Taken FOOT (MINIMUM 3 VIEWS) Stat Exams 06/10/23 10:37 Completed Multi-Disciplinary Progress Notes: Multi-Disciplinary Progress Notes 06/10/23 14:34 Pharmacy Note by Chinmay Garber Pharmacokinetic dosing service Date: 06/10/2023 1430 Time: 1429 Objective: Patient: JERRICA HARRINGTON Floor: 112 Age: 68 yo Serum creatinine: 1.44 mg/dL Height: 67 Inches Weight (kg): 81 Diagnosis: LEFT HEEL INFECTION Relevant medical/social history: Cultures and sensitivities: CULTURES PENDING Other labs: SR CR = 1.44 Assessment: IBW (kg): 61.60 Dosing wt(kg): 81 Estimated Creatinine clearance (ml/min): 36.9 CRCL method: Cockcroft and Gault using ibw(default). Drug selected: Vancomycin Loading dose (mg): 0 Vd (liters): 60.8 (factor used: 0.75 L/kg) Toby (hr-1): 0.035 Half life (hrs): 19.80 Recommended dose: 1250 mg Interval: 24 hrs Infusion time (hrs): 1.5 Predicted peak (mcg/mL): 35.2 Predicted trough (mcg/mL): 16.02 Total body weight is being used for vancomycin dosing. Renal function is stable [ ] /unstable [XXX ] Recommendations: Give Vancomycin 1250 mg q 24 hrs with an expected Cpeak of 35.2 mcg/ml and an expected Ctrough of 16.02 mcg/ml Renal dosing of other antibiotics (review renal dosing of other medications and list guidelines here): Thank you for the consult, will continue to follow. Signature: [facility] Monday06/13/23 0930 Initialized on 06/10/23 14:34 - END OF NOTE Assessment/Plan (1) Osteomyelitis Current Visit: Yes Status: Acute Qualifiers: Osteomyelitis type: other acute Osteomyelitis location: foot Laterality: left Qualified Code(s): M86.172 - Other acute osteomyelitis, left ankle and foot Assessment & Plan: - XR left foot 06/10/23 3 nonweightbearing views left foot demonstrates osteopenia, mild 1st tarsometatarsal degenerative changes, posterior calcaneal surgery with orthopedic screw/heterotopic ossifications, tiny plantar heel spur, and small cuboid accessory ossicle. No other bony, articular, or soft tissue abnormalities - XR left ankle 06/10/23 3 view left ankle demonstrates small focus subcutaneous air posterior to calcaneus presumed know infection. Elswhere osteopenia, posterior calcaneal surgery with orthopedic screw/heterotopic ossifications, tiny plantar heel spur, and diffuse soft tissue swelling. - Unable to feel pedal pulse prior to surgery, doppler used and unable to find. - Able to feel posterior tibial, and popliteal pulses- 2+ - Podiatry consulted and took to surgery today - Post op MWB on affected side - Vancomycin and zosyn- - deep wound cultures pending - narcotic pain control - PT/ OT - ASA 325mg daily for VTE - Dressing to remain clean and dry. Reinforce with Kerlix/DAR as necessary. - smoking cessation to aide in healing - consider rehab placement - BC x2 pending - Arterial duplex Monday as they do not do this on the weekend. Code(s): M86.9 - OSTEOMYELITIS, UNSPECIFIED (2) Open wound of heel Current Visit: Yes Status: Acute Qualifiers: Encounter type: initial encounter Laterality: left Qualified Code(s): S91.302A - Unspecified open wound, left foot, initial encounter Assessment & Plan: - XR of foot and heel - see results above in osteomyelitis dx - Consider MRI to r/o osteomyelitis - unable to do on the weekened - Pt reports screws in LLE placed over [address] Marcano with podiatry- she is unsure of they are MRI compatible. Will Obtain old records. - ESR elevated - CRP pending - Podiatry consulted- scheduled for surgery 06/11 - Wound culture gram positive - sensitivity pending - Vancomycin started in ER- continue - Zosyn started by podiatry - Narcotic pain medication - tylenol for fever - zofran for nausea PRN - BC x2 pending - WBC 12.5 06/10 - Last Tetnus> 5 yrs ago- booster ordered -Per pharmacy we do not have Td so TDAP gave. - labs pending 06/11 Code(s): S91.309A - UNSPECIFIED OPEN WOUND, UNSPECIFIED FOOT, INITIAL ENCOUNTER (3) VEENA (acute kidney injury) Current Visit: Yes Status: Acute Assessment & Plan: - Creat 1.44, BUN 22, GFR 39.9 - Baseline creat 1.05 - IVF 06/11 - Labs pending- went to surgery before they were drawn this morning Code(s): N17.9 - ACUTE KIDNEY FAILURE, UNSPECIFIED (4) HTN (hypertension) Current Visit: Yes Status: Chronic Assessment & Plan: - BP stable - Continue home meds Code(s): I10 - ESSENTIAL (PRIMARY) HYPERTENSION (5) Hypothyroidism Current Visit: Yes Status: Chronic Qualifiers: Hypothyroidism type: due to acquired atrophy of thyroid Qualified Code(s): E03.4 - Atrophy of thyroid (acquired) Assessment & Plan: - continue synthroid Code(s): E03.9 - HYPOTHYROIDISM, UNSPECIFIED (6) Smoker Current Visit: Yes Status: Chronic Assessment & Plan: - advised cessation - refused nicotine patch Code(s): F17.200 - NICOTINE DEPENDENCE, UNSPECIFIED, UNCOMPLICATED (7) Neuropathy Current Visit: Yes Status: Chronic Assessment & Plan: - continue gabapentin VTE: ASA PPI: protonix Next of Kin: , D/C plan: 2-3 days Code status: Full Code(s): G62.9 - POLYNEUROPATHY, UNSPECIFIED
[2023-06-11] MEDS ORDERED: PROPRANOLOL HCL 120 MG PO SCH (10:00)
[2023-06-11] MEDS ORDERED: VANCOMYCIN 1.25 GM/250 ML BAG 1.25 GM/250 ML PIGGYBACK IV SCH (10:00)
[2023-06-11] MEDS: Zestril 10 MG PO SCH (10:11)
[2023-06-11] MEDS: NORVASC 5 MG PO SCH (10:11)
[2023-06-11] MEDS: Ecotrin 325 MG PO SCH (10:11)
[2023-06-11] MEDS: Neurontin PO SCH ×2 (10:11→21:43)
[2023-06-11] MEDS: SYNTHROID 88 MCG PO SCH (10:12)
[2023-06-11] MEDS: NON-FORMULARY ITEM PO SCH (10:12)
[2023-06-11] MEDS: PROTONIX 40 MG IV IV SCH (10:13)
[2023-06-11] MEDS: NORCO 5/325 MG PO PRN ×3 (10:27→21:42)
[2023-06-11 10:33] LABS: Hematocrit 41.9 % (35-47); Hemoglobin 13.7 g/dL (12.0-16.0); Mean Cell Volume 95.7 fL (78-100); Mean Corpuscular Hemoglobin 31.3 pg (26-32); Mean Corpuscular Hgb Concent. 32.7 g/dL (32-36); Mean Platelet Volume 9.8 fL (7.5-11.0); Platelet Count 202 x10^3/uL (150-450); Red Blood Count 4.38 x10^6/uL (4.1-5.4); Red Cell Distribution Width 12.6 % (11.5-14.0); White Blood Count 9.7 x10^3/uL (4.0-10.5)
[2023-06-11 11:08] LABS: ALBUMIN 3.7 g/dL (3.5-5.0); BILIRUBIN,TOTAL 1.3 mg/dL (0.2-1.3); Calcium 8.9 mg/dL (8.4-10.2); Creatinine 1 0.77 mg/dL (0.52-1.04); EST GLOMERULAR FILTRATION RATE 84.5 ML/MIN; Potassium 3.8 mmol/L (3.5-5.1)
[2023-06-11 11:29] LABS: ANION GAP 10.8 MEQ/L (5-15)
[2023-06-11] MEDS: DUONEB 0.5-3 MG/3 ml Neb IH SCH (11:47)
[2023-06-11] MEDS: Hydromorphone 1 mg/ml Injection IV PRN (13:52)
--- NOTE | 2023-06-11 19:03 | XRAY ---
Indication: Left Achilles debridement and bone biopsy. Intraoperative fluoroscopy provided for 30 seconds. 10 digital spot images submitted for interpretation ultimately demonstrates partial resection posterior calcaneus. Correlate with intraoperative findings/report.
[2023-06-11] MEDS: ZOCOR 20MG PO SCH (21:43)
--- NOTE | 2023-06-12 05:12 | PCM.NOTE ---
Date and Time: 06/12/23 0511 Subjective Assessment: is a 68 year old female with PMHX of hyperlipidemia, HTN, neuropathy, and hypothyroidism who presented to the ED 06/10/23 with complaints of left heel pain w/ oozing wound which occurred three days prior after she popped a large blister on the heel with a needle 06/07/23. Imaging demonstrating small focal subcutaneous air posterior to the calcaneus consistent with infection. Preliminary cultures with gram positive organism. Podiatry consulted, surgical I&D on 06/11/23. Current treatment with Zosyn/Vanc -ASA 325mg for VTE. PT/OT while IP for gait training, assistive device training, and assessment of functional status with NWB of left extremity. Patient may need placement on discharge if agreeable. 06/12/23: Met with patient bedside. Endorses continued pain of LLE sharp 5/10 on numerical pain scale. Controlled with pain medication regimen. Discussed labs findings showing MRSA in wound. Patient to have PICC placed today for IV abx with Dapto/Vanc per podiatry. Will hold Zocor due to interaction with Dapto. Patient is NWB and needing assistance with ADLs/gait training/device training. Will need placement on discharge, patient is agreeable. Denies fever,cough, sob, cp, abdominal pain, JENSEN, dizziness, N/V/D. - Review of Systems Constitutional: No Symptoms Eyes: No Symptoms Ears, Nose, & Throat: No Symptoms Respiratory: No Symptoms Cardiac: No Symptoms Abdominal/Gastrointestinal: No Symptoms Genitourinary Symptoms: No Symptoms Musculoskeletal: Other (Pain to LLE ) Skin: Other (Surgical site LLE wrapped in surgical dressing, no surrounding erythema/streaking) Neurological: No Symptoms Psychological: No Symptoms Endocrine: No Symptoms Hematologic/Lymphatic: No Symptoms Immunological/Allergic: No Symptoms Objective Exam General Appearance: no apparent distress Neurologic Exam: alert, oriented x 3, cooperative Skin Exam: other (LLE with surgical dressing, no surrounding erythema/streaking, CDI) Eye Exam: PERRL Ears, Nose, Throat Exam: normal ENT inspection Neck Exam: normal inspection Respiratory Exam: normal breath sounds, lungs clear Cardiovascular Exam: regular rate/rhythm, normal heart sounds Gastrointestinal/Abdomen Exam: soft, normal bowel sounds Extremity Exam: normal inspection Back Exam: normal inspection Pelvic Exam: deferred Rectal Exam: deferred OBJECTIVE DATA Vital Signs: Vital Signs - 24 hr Temp Pulse Resp BP Pulse Ox 06/12/23 03:48 98.3 F 71 18 117/58 97 06/12/23 00:00 98.4 F 80 18 99/54 97 06/11/23 20:00 98.2 F 75 18 107/60 96 06/11/23 19:19 73 16 94 L 06/11/23 16:00 98.0 F 71 17 113/61 99 06/11/23 11:56 77 93 L 06/11/23 11:33 76 16 123/66 95 06/11/23 11:05 75 17 125/60 90 L 06/11/23 10:35 76 17 121/61 93 L 06/11/23 10:20 81 17 131/69 95 06/11/23 10:05 87 17 137/63 95 06/11/23 06:41 98.4 F 79 17 122/66 95 06/11/23 05:38 99.1 F 85 16 125/89 96 Pain Assessment - Last Documented Pain Intensity 1 Pain Scale Used 0-10 Pain Scale Intake and Output: Intake & Output 06/09/23 06/10/23 06/11/23 06/12/23 11:59 11:59 11:59 11:59 Intake Total 2065 1571 Output Total 400 1350 Balance 1665 221 Weight 80.739 kg 83.2 kg Lab Results: Lab Results-Last 24 Hours 06/11/23 06/11/23 Range/Units 10:27 10:27 WBC 9.7 (4.0-10.5) x10^3/uL RBC 4.38 (4.1-5.4) x10^6/uL Hgb 13.7 (12.0-16.0) g/dL Hct 41.9 (35-47) % MCV 95.7 (78-100) fL MCH 31.3 (26-32) pg MCHC 32.7 (32-36) g/dL RDW 12.6 (11.5-14.0) % Plt Count 202 (150-450) x10^3/uL MPV 9.8 (7.5-11.0) fL Sodium 138 (137-145) mmol/L Potassium 3.8 (3.5-5.1) mmol/L Chloride 108 H (98-107) mmol/L Carbon Dioxide 23 (22-30) mmol/L Anion Gap 10.8 (5-15) MEQ/L BUN 13 (7-17) mg/dL Creatinine 0.77 (0.52-1.04) mg/dL Estimated GFR 84.5 ML/MIN Glucose 120 H (74-106) mg/dL Calcium 8.9 (8.4-10.2) mg/dL Total Bilirubin 1.30 (0.2-1.3) mg/dL AST 129 H (14-36) U/L ALT 112 H (0-35) U/L Alkaline Phosphatase 178 H (38-126) U/L Serum Total Protein 7.0 (6.3-8.2) g/dL Albumin 3.7 (3.5-5.0) g/dL Radiology Exams: Radiology Procedures Category Date Time Status DONNA/SEG PRESSURE UNILAT [US] Routine Exams 06/12/23 08:00 Ordered ANKLE (3 VIEWS) Stat Exams 06/10/23 10:37 Completed ARTERIAL UNILAT/LTD LOWER EXT [US] Routine Exams 06/12/23 08:00 Ordered FLUOROSCOPY UP TO 1 HR Routine Exams 06/11/23 07:53 Taken FOOT (2 VIEWS) Routine Exams 06/11/23 07:48 Completed FOOT (MINIMUM 3 VIEWS) Stat Exams 06/10/23 10:37 Completed Assessment/Plan (1) Osteomyelitis Current Visit: Yes Status: Acute Qualifiers: Osteomyelitis type: other acute Osteomyelitis location: foot Laterality: left Qualified Code(s): M86.172 - Other acute osteomyelitis, left ankle and foot Assessment & Plan: - XR left foot 06/10/23 3 nonweightbearing views left foot demonstrates osteopenia, mild 1st tarsometatarsal degenerative changes, posterior calcaneal surgery with orthopedic screw/heterotopic ossifications, tiny plantar heel spur, and small cuboid accessory ossicle. No other bony, articular, or soft tissue abnormalities - XR left ankle 06/10/23 3 view left ankle demonstrates small focus subcutaneous air posterior to calcaneus presumed know infection. Elswhere osteopenia, posterior calcaneal surgery with orthopedic screw/heterotopic ossifications, tiny plantar heel spur, and diffuse soft tissue swelling. - Unable to feel pedal pulse prior to surgery, doppler used and unable to find. - Able to feel posterior tibial, and popliteal pulses- 2+ - Podiatry consulted and took to surgery today - Post op MWB on affected side - Vancomycin and zosyn- - deep wound cultures pending - narcotic pain control - PT/ OT - ASA 325mg daily for VTE - Dressing to remain clean and dry. Reinforce with Kerlix/DAR as necessary. - smoking cessation to aide in healing - consider rehab placement - BC x2 pending - Arterial duplex Monday as they do not do this on the weekend. 06/12: -Wound culture with MRSA -Per podiatry PICC for dapto/vanc -DC Zocor due to interaction with dapto -Rehab placement pending -art duplex pending -achilles removed, will need future surgical intervention for repair Code(s): M86.9 - OSTEOMYELITIS, UNSPECIFIED (2) Open wound of heel Current Visit: Yes Status: Acute Qualifiers: Encounter type: initial encounter Laterality: left Qualified Code(s): S91.302A - Unspecified open wound, left foot, initial encounter Assessment & Plan: - XR of foot and heel - see results above in osteomyelitis dx - Consider MRI to r/o osteomyelitis - unable to do on the weekened - Pt reports screws in LLE placed over [address] Marcano with podiatry- she is unsure of they are MRI compatible. Will Obtain old records. - ESR elevated - CRP pending - Podiatry consulted- scheduled for surgery 06/11 - Wound culture gram positive - sensitivity pending - Vancomycin started in ER- continue - Zosyn started by podiatry - Narcotic pain medication - tylenol for fever - zofran for nausea PRN - BC x2 pending - WBC 12.5 06/10 - Last Tetnus> 5 yrs ago- booster ordered -Per pharmacy we do not have Td so TDAP gave. - labs pending 06/11 06/12: -see above Code(s): S91.309A - UNSPECIFIED OPEN WOUND, UNSPECIFIED FOOT, INITIAL ENCOUNTER (3) VEENA (acute kidney injury) Current Visit: Yes Status: Acute Assessment & Plan: - Creat 1.44, BUN 22, GFR 39.9 - Baseline creat 1.05 - IVF 06/11 - Labs pending- went to surgery before they were drawn this morning Code(s): N17.9 - ACUTE KIDNEY FAILURE, UNSPECIFIED (4) HTN (hypertension) Current Visit: Yes Status: Chronic Assessment & Plan: - BP stable - Continue home meds Code(s): I10 - ESSENTIAL (PRIMARY) HYPERTENSION (5) Hypothyroidism Current Visit: Yes Status: Chronic Qualifiers: Hypothyroidism type: due to acquired atrophy of thyroid Qualified Code(s): E03.4 - Atrophy of thyroid (acquired) Assessment & Plan: - continue synthroid Code(s): E03.9 - HYPOTHYROIDISM, UNSPECIFIED (6) Smoker Current Visit: Yes Status: Chronic Assessment & Plan: - advised cessation - refused nicotine patch Code(s): F17.200 - NICOTINE DEPENDENCE, UNSPECIFIED, UNCOMPLICATED (7) Neuropathy Current Visit: Yes Status: Chronic Assessment & Plan: - continue gabapentin (8) Transaminitis -labs downtrending, may be secondary to infection, will continue to monitor VTE: ASA PPI: protonix Next of Kin: , D/C plan: 2-3 days Code status: Full Code(s): M86.9 - OSTEOMYELITIS, UNSPECIFIED (2) VEENA (acute kidney injury) Current Visit: Yes Status: Acute Code(s): N17.9 - ACUTE KIDNEY FAILURE, UNSPECIFIED (3) Open wound of heel Current Visit: Yes Status: Acute Qualifiers: Encounter type: initial encounter Laterality: left Qualified Code(s): S91.302A - Unspecified open wound, left foot, initial encounter Code(s): S91.309A - UNSPECIFIED OPEN WOUND, UNSPECIFIED FOOT, INITIAL ENCOUNTER (4) HTN (hypertension) Current Visit: Yes Status: Chronic Code(s): I10 - ESSENTIAL (PRIMARY) HYPERTENSION (5) Hypothyroidism Current Visit: Yes Status: Chronic Qualifiers: Hypothyroidism type: due to acquired atrophy of thyroid Qualified Code(s): E03.4 - Atrophy of thyroid (acquired) Code(s): E03.9 - HYPOTHYROIDISM, UNSPECIFIED (6) Neuropathy Current Visit: Yes Status: Chronic Code(s): G62.9 - POLYNEUROPATHY, UN SPECIFIED (7) Smoker Current Visit: Yes Status: Chronic Code(s): F17.200 - NICOTINE DEPENDENCE, UNSPECIFIED, UNCOMPLICATED (8) Transaminitis Current Visit: Yes Status: Acute Code(s): R74.01 - ELEVATION OF LEVELS OF LIVER TRANSAMINASE LEVELS
[2023-06-12] MEDS: PIPERACILLIN/TAZOBACTAM 3.375 GM in Sodium Chloride 100ML MINI-BAG PLUS 100 ML IV SCH (06:48)
[2023-06-12] MEDS: DUONEB 0.5-3 MG/3 ml Neb IH SCH (06:52)
[2023-06-12] MEDS ORDERED: PHARMACY DOSING REQUEST MC ONE (07:36)
[2023-06-12 07:56] LABS: Absolute Neutrophil Ct (ANC) 12.01 x10^3/uL (1.4-6.9); BASOPHIL % 0.3 % (0.0-0.4); Basophil (Absolute #) 0.04 x10^3/uL (0-0.4); Eosinophil % 0.1 % (0.00-5.0); Eosinophil (Absolute #) 0.01 x10^3/uL (0-0.5); Hematocrit 37.9 % (35-47); Hemoglobin 12.9 g/dL (12.0-16.0); IMMATURE GRAN % 0.7 % (0.00-0.4); Lymphocyte (Absolute #) 1.55 x10^3/uL (1.0-4.6); Lymphocytes % 10.3 % (24.0-44.0); Mean Cell Volume 92.9 fL (78-100); Mean Corpuscular Hemoglobin 31.6 pg (26-32); Mean Platelet Volume 9.9 fL (7.5-11.0); Monocyte (Absolute #) 1.32 x10^3/uL (0.0-1.3); Monocytes % 8.8 % (0.0-12.0); Neutrophil % 79.8 % (36.0-66.0); Platelet Count 210 x10^3/uL (150-450); Red Blood Count 4.08 x10^6/uL (4.1-5.4); Red Cell Distribution Width 12.6 % (11.5-14.0)
[2023-06-12 08:14] LABS: ALBUMIN 3.4 g/dL (3.5-5.0); ANION GAP 7.6 MEQ/L (5-15); BILIRUBIN,TOTAL 0.8 mg/dL (0.2-1.3); Calcium 8.9 mg/dL (8.4-10.2); Creatinine 1 0.65 mg/dL (0.52-1.04); EST GLOMERULAR FILTRATION RATE 96.4 ML/MIN; Potassium 3.5 mmol/L (3.5-5.1); Total Protein 6.6 g/dL (6.3-8.2)
[2023-06-12] MEDS ORDERED: TROUGH DRUG LEVELS IJ ONE (09:30)
[2023-06-12] MEDS: NORCO 5/325 MG PO PRN ×2 (10:43→22:22)
[2023-06-12] MEDS: Neurontin PO SCH ×2 (11:17→21:22)
[2023-06-12] MEDS: Protonix 40MG Tablet PO SCH (11:17)
[2023-06-12] MEDS: Ecotrin 325 MG PO SCH (11:17)
[2023-06-12] MEDS: NORVASC 5 MG PO SCH (11:17)
[2023-06-12] MEDS: Zestril 10 MG PO SCH (11:18)
[2023-06-12] MEDS: SYNTHROID 88 MCG PO SCH (11:18)
[2023-06-12] MEDS: NON-FORMULARY ITEM PO SCH (11:19)
[2023-06-12] MEDS: VANCOMYCIN 1 GRAM/200 ML BAG 1 GM/200 ML PIGGYBACK IV SCH (13:15)
--- NOTE | 2023-06-12 13:19 | XRAY ---
Indication: PICC placement. Comparison: October 04, 2021 Portable chest demonstrates new left arm PICC line with tip projecting over SVC. Remaining heart and lungs unremarkable again with incidental left base subsegmental atelectasis/scarring and left apical calcified granuloma. Bony thorax intact again with osteopenia and degenerative changes. No new/acute cardiopulmonary abnormalities.
[2023-06-12] MEDS: Docusate Sodium 100 MG PO SCH ×2 (13:21→21:22)
--- NOTE | 2023-06-12 14:15 | XRAY ---
30 seconds of fluoroscopy was used in surgery for a left Achilles debridement and bone biopsy.
--- NOTE | 2023-06-12 15:15 | XRAY ---
Indication: Osteomyelitis. Two-dimensional sonogram and color Doppler imaging major arteries left leg performed. Comparison: None Visualized common femoral, deep femoral, superficial femoral arteries are widely patent with multiphasic arterial waveforms. Remaining popliteal, posterior tibial, and dorsal pedal arteries demonstrates minimal scattered arteriosclerotic disease without critical stenosis/obstruction. The lower leg arterial waveforms are monophasic. Impression: Minimal arteriosclerotic disease lower leg. Negative for critical stenosis/obstruction.
--- NOTE | 2023-06-12 15:17 | XRAY ---
Indication: Osteomyelitis. Left toe brachial index could not be performed due to left arm PICC line in situ. Also left toe pressure could not be obtained due to inability to compress and obtain pressure reading.
[2023-06-12] MEDS: Hydromorphone 1 mg/ml Injection IV PRN (19:40)
[2023-06-12] MEDS: DAPTOmycin 500 MG in Sodium Chloride Flush 30 ML*** 10 ML IV SCH (21:22)
[2023-06-13] MEDS: Hydromorphone 1 mg/ml Injection IV PRN (02:00)
[2023-06-13 04:51] LABS: Absolute Neutrophil Ct (ANC) 6.42 x10^3/uL (1.4-6.9); BASOPHIL % 0.7 % (0.0-0.4); Basophil (Absolute #) 0.07 x10^3/uL (0-0.4); Eosinophil % 1.1 % (0.00-5.0); Eosinophil (Absolute #) 0.11 x10^3/uL (0-0.5); Hematocrit 34.4 % (35-47); Hemoglobin 11.1 g/dL (12.0-16.0); IMMATURE GRAN # 0.08 x10^3u/L (0.00-0.03); IMMATURE GRAN % 0.8 % (0.00-0.4); Lymphocyte (Absolute #) 2.32 x10^3/uL (1.0-4.6); Lymphocytes % 23.2 % (24.0-44.0); Mean Cell Volume 96.6 fL (78-100); Mean Corpuscular Hemoglobin 31.2 pg (26-32); Mean Corpuscular Hgb Concent. 32.3 g/dL (32-36); Mean Platelet Volume 10.4 fL (7.5-11.0); Monocyte (Absolute #) 0.99 x10^3/uL (0.0-1.3); Monocytes % 9.9 % (0.0-12.0); Neutrophil % 64.3 % (36.0-66.0); Platelet Count 185 x10^3/uL (150-450); Red Blood Count 3.56 x10^6/uL (4.1-5.4); Red Cell Distribution Width 12.9 % (11.5-14.0)
[2023-06-13 05:06] LABS: ANION GAP 6.9 MEQ/L (5-15); BILIRUBIN,TOTAL 0.9 mg/dL (0.2-1.3); Calcium 8.2 mg/dL (8.4-10.2); Creatinine 1 0.61 mg/dL (0.52-1.04); EST GLOMERULAR FILTRATION RATE 97.9 ML/MIN; Potassium 3.3 mmol/L (3.5-5.1); Total Protein 5.9 g/dL (6.3-8.2)
--- NOTE | 2023-06-13 05:37 | PCM.NOTE ---
Date and Time: 06/13/23 0535 Subjective Assessment: is a 68 year old female with PMHX of hyperlipidemia, HTN, neuropathy, and hypothyroidism who presented to the ED 06/10/23 with complaints of left heel pain w/ oozing wound which occurred three days prior after she popped a large blister on the heel with a needle 06/07/23. Imaging demonstrating small focal subcutaneous air posterior to the calcaneus consistent with infection. Preliminary cultures with gram positive organism. Podiatry consulted, surgical I&D on 06/11/23. Culture with MRSA. Current treatment with Dapto/Vanc - ASA 325mg for VTE. PT/OT while IP for gait training, assistive device training, and assessment of functional status with NWB of left extremity. She will need at least 6 week of IV abx. 06/12/23: Met with patient bedside. Endorses continued pain of LLE sharp 5/10 on numerical pain scale. Controlled with pain medication regimen. Discussed labs findings showing MRSA in wound. Patient to have PICC placed today for IV abx with Dapto per podiatry. Will hold Zocor due to interaction with Dapto. Patient is NWB and needing assistance with ADLs/gait training/device training. Will need placement on discharge, patient is agreeable. Denies fever,cough, sob, cp, abdominal pain, JENSEN, dizziness, N/V/D. 06/13/23: Met with patient bedside. States pain woke her up this morning but tolerable with pain medication regimen. PICC placed. Plan for about 6 weeks of Daptomycin per podiatry and D/C to SNF most likely tomorrow. Denies fever,cough, sob, cp, abdominal pain, JENSEN, dizziness, N/V/D. - Review of Systems Constitutional: No Symptoms Eyes: No Symptoms Ears, Nose, & Throat: No Symptoms Respiratory: No Symptoms Cardiac: No Symptoms Abdominal/Gastrointestinal: No Symptoms Genitourinary Symptoms: No Symptoms Musculoskeletal: Other (Pain to surgical site LLE) Skin: No Symptoms Neurological: No Symptoms Psychological: No Symptoms Endocrine: No Symptoms Hematologic/Lymphatic: No Symptoms Immunological/Allergic: No Symptoms Objective Exam General Appearance: no apparent distress (LLE with surgical dressing, no erythema/streaking, CDI) Neurologic Exam: alert, oriented x 3, cooperative Skin Exam: normal color Eye Exam: PERRL Ears, Nose, Throat Exam: normal ENT inspection Neck Exam: normal inspection Respiratory Exam: normal breath sounds, lungs clear Cardiovascular Exam: regular rate/rhythm, normal heart sounds Gastrointestinal/Abdomen Exam: soft, normal bowel sounds Extremity Exam: other (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) Back Exam: normal inspection Pelvic Exam: deferred Rectal Exam: deferred OBJECTIVE DATA Vital Signs: Vital Signs - 24 hr Temp Pulse Resp BP Pulse Ox 06/13/23 04:00 97.2 F 74 16 117/64 96 06/12/23 23:30 99.1 F 83 16 116/71 95 06/12/23 20:00 99.1 F 85 16 142/71 94 L 06/12/23 19:20 83 18 94 L 06/12/23 16:00 98.2 F 75 16 130/82 96 06/12/23 12:00 98.1 F 80 16 126/76 97 06/12/23 07:01 98.1 F 79 18 127/64 97 06/12/23 06:57 88 16 95 Pain Assessment - Last Documented Pain Intensity 3 Pain Scale Used 0-10 Pain Scale Intake and Output: Intake & Output 06/10/23 06/11/23 06/12/23 06/13/23 11:59 11:59 11:59 11:59 Intake Total 2065 1571 480 Output Total 400 1350 Balance 1665 221 480 Weight 80.739 kg 83.2 kg Lab Results: Lab Results-Last 24 Hours 06/10/23 06/12/23 06/12/23 Range/Units 19:45 07:50 07:50 WBC 15.0 H (4.0-10.5) x10^3/uL RBC 4.08 L (4.1-5.4) x10^6/uL Hgb 12.9 (12.0-16.0) g/dL Hct 37.9 (35-47) % MCV 92.9 (78-100) fL MCH 31.6 (26-32) pg MCHC 34.0 (32-36) g/dL RDW 12.6 (11.5-14.0) % Plt Count 210 (150-450) x10^3/uL MPV 9.9 (7.5-11.0) fL Gran % 79.8 H (36.0-66.0) % Immature Gran % (Auto) 0.7 H (0.00-0.4) % Nucleat RBC Rel Count 0.0 (0.00-0.1) % Eos # (Auto) 0.01 (0-0.5) x10^3/uL Immature Gran # (Auto) 0.10 H (0.00-0.03) x10^3u/L Absolute Lymphs (auto) 1.55 (1.0-4.6) x10^3/uL Absolute Monos (auto) 1.32 H (0.0-1.3) x10^3/uL Absolute Nucleated RBC 0.00 (0.00-0.01) x10^3u/L Lymphocytes % 10.3 L (24.0-44.0) % Monocytes % 8.8 (0.0-12.0) % Eosinophils % 0.1 (0.00-5.0) % Basophils % 0.3 (0.0-0.4) % Absolute Granulocytes 12.01 H (1.4-6.9) x10^3/uL Basophils # 0.04 (0-0.4) x10^3/uL Sodium 138 (137-145) mmol/L Potassium 3.5 (3.5-5.1) mmol/L Chloride 109 H (98-107) mmol/L Carbon Dioxide 25 (22-30) mmol/L Anion Gap 7.6 (5-15) MEQ/L BUN 11 (7-17) mg/dL Creatinine 0.65 (0.52-1.04) mg/dL Estimated GFR 96.4 ML/MIN Glucose 116 H (74-106) mg/dL Calcium 8.9 (8.4-10.2) mg/dL Total Bilirubin 0.80 (0.2-1.3) mg/dL AST 47 H (14-36) U/L ALT 64 H (0-35) U/L Alkaline Phosphatase 150 H (38-126) U/L C-Reactive Prot, Quant 141 H (0-10) mg/L Serum Total Protein 6.6 (6.3-8.2) g/dL Albumin 3.4 L (3.5-5.0) g/dL Vancomycin Trough (10-20) ug/mL 06/12/23 06/13/2324 Range/Units 09:32 04:06 04:06 WBC 10.0 (4.0-10.5) x10^3/uL RBC 3.56 L (4.1-5.4) x10^6/uL Hgb 11.1 L (12.0-16.0) g/dL Hct 34.4 L (35-47) % MCV 96.6 (78-100) fL MCH 31.2 (26-32) pg MCHC 32.3 (32-36) g/dL RDW 12.9 (11.5-14.0) % Plt Count 185 (150-450) x10^3/uL MPV 10.4 (7.5-11.0) fL Gran % 64.3 (36.0-66.0) % Immature Gran % (Auto) 0.8 H (0.00-0.4) % Nucleat RBC Rel Count 0.0 (0.00-0.1) % Eos # (Auto) 0.11 (0-0.5) x10^3/uL Immature Gran # (Auto) 0.08 H (0.00-0.03) x10^3u/L Absolute Lymphs (auto) 2.32 (1.0-4.6) x10^3/uL Absolute Monos (auto) 0.99 (0.0-1.3) x10^3/uL Absolute Nucleated RBC 0.00 (0.00-0.01) x10^3u/L Lymphocytes % 23.2 L (24.0-44.0) % Monocytes % 9.9 (0.0-12.0) % Eosinophils % 1.1 (0.00-5.0) % Basophils % 0.7 (0.0-0.4) % Absolute Granulocytes 6.42 (1.4-6.9) x10^3/uL Basophils # 0.07 (0-0.4) x10^3/uL Sodium 137 (137-145) mmol/L Potassium 3.3 L (3.5-5.1) mmol/L Chloride 107 (98-107) mmol/L Carbon Dioxide 26 (22-30) mmol/L Anion Gap 6.9 (5-15) MEQ/L BUN 14 (7-17) mg/dL Creatinine 0.61 (0.52-1.04) mg/dL Estimated GFR 97.9 ML/MIN Glucose 94 (74-106) mg/dL Calcium 8.2 L (8.4-10.2) mg/dL Total Bilirubin 0.90 (0.2-1.3) mg/dL AST 47 H (14-36) U/L ALT 56 H (0-35) U/L Alkaline Phosphatase 125 (38-126) U/L C-Reactive Prot, Quant (0-10) mg/L Serum Total Protein 5.9 L (6.3-8.2) g/dL Albumin 3.0 L (3.5-5.0) g/dL Vancomycin Trough 11.83 (10-20) ug/mL Radiology Exams: Radiology Procedures Category Date Time Status DONNA/SEG PRESSURE UNILAT [US] Routine Exams 06/12/23 08:00 Completed ARTERIAL UNILAT/LTD LOWER EXT [US] Routine Exams 06/12/23 08:00 Completed CHEST 1 VIEW (PORTABLE) Stat Exams 06/12/23 12:31 Completed FLUOROSCOPY UP TO 1 HR Routine Exams 06/11/23 07:53 Completed FOOT (2 VIEWS) Routine Exams 06/11/23 07:48 Completed Multi-Disciplinary Progress Notes: Multi-Disciplinary Progress Notes 06/12/23 14:23 Case Management Note by Rosalina Morris FULL REFERRAL WITH PASRR AND PICC LINE INFO FAXED TO [facility] AT THIS TIME Initialized on 06/12/23 14:23 - END OF NOTE 06/12/23 13:01 Case Management Note by Rosalina Morris PAPERWORK COMPLETE AT THIS TIME- NO LEVEL II REQUIRED. WILL FAX COPY WITH REFERRAL AND COPY PLACED ON CHART Initialized on 06/12/23 13:01 - END OF NOTE 06/12/23 10:19 Pharmacy Note by Parth Lang Please be aware of possible drug interaction with Zocor and Cubicin. My increase risk of rhabdomyolysis. Consider holding Zocor while on Cubicin. Initialized on 06/12/23 10:19 - END OF NOTE 06/12/23 08:19 Pharmacy Note by Parth Lang Daptomycin dosinmg ivp once daily. Check creatinine and creatine kinase weekly. Initialized on 06/12/23 08:19 - END OF NOTE Assessment/Plan (1) Osteomyelitis Current Visit: Yes Status: Acute Qualifiers: Osteomyelitis type: other acute Osteomyelitis location: foot Laterality: left Qualified Code(s): M86.172 - Other acute osteomyelitis, left ankle and foot Assessment & Plan: - XR left foot 06/10/23 3 nonweightbearing views left foot demonstrates osteopenia, mild 1st tarsometatarsal degenerative changes, posterior calcaneal surgery with orthopedic screw/heterotopic ossifications, tiny plantar heel spur, and small cuboid accessory ossicle. No other bony, articular, or soft tissue abnormalities - XR left ankle 06/10/23 3 view left ankle demonstrates small focus subcutaneous air posterior to calcaneus presumed know infection. Elswhere osteopenia, posterior calcaneal surgery with orthopedic screw/heterotopic ossifications, tiny plantar heel spur, and diffuse soft tissue swelling. - Unable to feel pedal pulse prior to surgery, doppler used and unable to find. - Able to feel posterior tibial, and popliteal pulses- 2+ - Podiatry consulted and took to surgery today - Post op MWB on affected side - Vancomycin and zosyn- - deep wound cultures pending - narcotic pain control - PT/ OT - ASA 325mg daily for VTE - Dressing to remain clean and dry. Reinforce with Kerlix/DAR as necessary. - smoking cessation to aide in healing - consider rehab placement - BC x2 pending - Arterial duplex Monday as they do not do this on the . 06/12: -Wound culture with MRSA -Per podiatry PICC for dapto -DC Zocor due to interaction with dapto -Rehab placement pending -art duplex pending -achilles removed, will need future surgical intervention for repair 06/13: -Arterial duplex with Minimal arteriosclerotic disease lower leg. Negative for critical stenosis/obstruction. Unable to obtain left toe brachial index due to left arm PICC line in situ and patient's inability to compress and obtain pressure reading -Rehab pending, continue Dapto for now -PT/OT to continue while IP Code(s): M86.9 - OSTEOMYELITIS, UNSPECIFIED (2) Open wound of heel Current Visit: Yes Status: Acute Qualifiers: Encounter type: initial encounter Laterality: left Qualified Code(s): S91.302A - Unspecified open wound, left foot, initial encounter Assessment & Plan: - XR of foot and heel - see results above in osteomyelitis dx - Consider MRI to r/o osteomyelitis - unable to do on the weekened - Pt reports screws in LLE placed over [address] Marcano with podiatry- she is unsure of they are MRI compatible. Will Obtain old records. - ESR elevated - CRP pending - Podiatry consulted- scheduled for surgery 06/11 - Wound culture gram positive - sensitivity pending - Vancomycin started in ER- continue - Zosyn started by podiatry - Narcotic pain medication - tylenol for fever - zofran for nausea PRN - BC x2 pending - WBC 12.5 06/10 - Last Tetnus> 5 yrs ago- booster ordered -Per pharmacy we do not have Td so TDAP gave. - labs pending 06/11 06/12: -see above Code(s): S91.309A - UNSPECIFIED OPEN WOUND, UNSPECIFIED FOOT, INITIAL ENCOUNTER (3) VEENA (acute kidney injury) Current Visit: Yes Status: Acute Assessment & Plan: - Creat 1.44, BUN 22, GFR 39.9 - Baseline creat 1.05 - IVF 06/11 - Labs pending- went to surgery before they were drawn this morning 06/13: -resolved Code(s): N17.9 - ACUTE KIDNEY FAILURE, UNSPECIFIED (4) HTN (hypertension) Current Visit: Yes Status: Chronic Assessment & Plan: - BP stable - Continue home meds Code(s): I10 - ESSENTIAL (PRIMARY) HYPERTENSION (5) Hypothyroidism Current Visit: Yes Status: Chronic Qualifiers: Hypothyroidism type: due to acquired atrophy of thyroid Qualified Code(s): E03.4 - Atrophy of thyroid (acquired) Assessment & Plan: - continue synthroid Code(s): E03.9 - HYPOTHYROIDISM, UNSPECIFIED (6) Smoker Current Visit: Yes Status: Chronic Assessment & Plan: - advised cessation - refused nicotine patch Code(s): F17.200 - NICOTINE DEPENDENCE, UNSPECIFIED, UNCOMPLICATED (7) Neuropathy Current Visit: Yes Status: Chronic Assessment & Plan: - continue gabapentin (8) Transaminitis -labs downtrending, may be secondary to infection, will continue to monitor 1/23: -Labs continue to downtrend (9) Hypokalemia -potassium low at 3.3, will replenish VTE: ASA PPI: protonix Next of Kin: , D/C plan: 2-3 days Code status: Full Code(s): M86.9 - OSTEOMYELITIS, UNSPECIFIED Code(s): M86.9 - OSTEOMYELITIS, UNSPECIFIED (2) VEENA (acute kidney injury) Current Visit: Yes Status: Acute Code(s): N17.9 - ACUTE KIDNEY FAILURE, UNSPECIFIED (3) Open wound of heel Current Visit: Yes Status: Acute Qualifiers: Encounter type: initial encounter Laterality: left Qualified Code(s): S91.302A - Unspecified open wound, left foot, initial encounter Code(s): S91.309A - UNSPECIFIED OPEN WOUND, UNSPECIFIED FOOT, INITIAL ENCOUNTER (4) HTN (hypertension) Current Visit: Yes Status: Chronic Code(s): I10 - ESSENTIAL (PRIMARY) HYPERTENSION (5) Hypothyroidism Current Visit: Yes Status: Chronic Qualifiers: Hypothyroidism type: due to acquired atrophy of thyroid Qualified Code(s): E03.4 - Atrophy of thyroid (acquired) Code(s): E03.9 - HYPOTHYROIDISM, UNSPECIFIED (6) Neuropathy Current Visit: Yes Status: Chronic Code(s): G62.9 - POLYNEUROPATHY, UNSPECIFIED (7) Smoker Current Visit: Yes Status: Chronic Code(s): F17.200 - NICOTINE DEPENDENCE, UNSPECIFIED, UNCOMPLICATED (8) Transaminitis Current Visit: Yes Status: Acute Code(s): R74.01 - ELEVATION OF LEVELS OF LIVER TRANSAMINASE LEVELS (9) Hypokalemia Current Visit: Yes Status: Acute Code(s): E87.6 - HYPOKALEMIA
[2023-06-13] MEDS: DUONEB 0.5-3 MG/3 ml Neb IH SCH (07:39)
[2023-06-13] MEDS ORDERED: Klor Con PO ONE (08:22)
[2023-06-13] MEDS: Zestril 10 MG PO SCH (09:36)
[2023-06-13] MEDS: Ecotrin 325 MG PO SCH (09:36)
[2023-06-13] MEDS: NORVASC 5 MG PO SCH (09:36)
[2023-06-13] MEDS: Neurontin PO SCH ×2 (09:37→21:58)
[2023-06-13] MEDS: Docusate Sodium 100 MG PO SCH ×2 (09:37→21:58)
[2023-06-13] MEDS: Protonix 40MG Tablet PO SCH (09:37)
[2023-06-13] MEDS: SYNTHROID 88 MCG PO SCH (09:38)
[2023-06-13] MEDS: NON-FORMULARY ITEM PO SCH (09:39)
[2023-06-13] MEDS: NORCO 5/325 MG PO PRN (09:39)
[2023-06-13] MEDS: DAPTOmycin 500 MG in Sodium Chloride Flush 30 ML*** 10 ML IV SCH (22:59)
[2023-06-14 05:16] LABS: Absolute Neutrophil Ct (ANC) 6.01 x10^3/uL (1.4-6.9); Basophil (Absolute #) 0.09 x10^3/uL (0-0.4); Eosinophil % 2.6 % (0.00-5.0); Eosinophil (Absolute #) 0.23 x10^3/uL (0-0.5); Hematocrit 38.7 % (35-47); IMMATURE GRAN # 0.12 x10^3u/L (0.00-0.03); IMMATURE GRAN % 1.3 % (0.00-0.4); Lymphocyte (Absolute #) 1.69 x10^3/uL (1.0-4.6); Lymphocytes % 18.8 % (24.0-44.0); Mean Cell Volume 94.2 fL (78-100); Mean Corpuscular Hemoglobin 31.6 pg (26-32); Mean Corpuscular Hgb Concent. 33.6 g/dL (32-36); Mean Platelet Volume 9.8 fL (7.5-11.0); Monocyte (Absolute #) 0.85 x10^3/uL (0.0-1.3); Monocytes % 9.5 % (0.0-12.0); Neutrophil % 66.8 % (36.0-66.0); Platelet Count 246 x10^3/uL (150-450); Red Blood Count 4.11 x10^6/uL (4.1-5.4)
--- NOTE | 2023-06-14 05:26 | PCM.DS ---
Discharge Summary Date of Admission: 06/11/23 09:22 Date of Discharge: 06/14/23 Admitting Physician: GRACIA AHUJA MD Consults: Consults on Case 06/10/23 14:31 Consult Podiatry ROUTINE Primary Care Provider: RICKEY GUZMAN DO Allergies Allergies No Known Drug Allergies Allergy (Verified 06/10/23 10:01) Hospital Summary - Hospital Course Hospital Course: is a 68 year old female with PMHX of hyperlipidemia, HTN, neuropathy, and hypothyroidism who presented to the ED 06/10/23 with complaints of left heel pain w/ oozing wound which occurred three days prior after she popped a large blister on the heel with a needle 06/07/23. Imaging demonstrating small focal subcutaneous air posterior to the calcaneus consistent with infection. Patient admitted with osteomyelitis of calcaneous. Podiatry consulted, surgical I&D on 06/11/23 with removal of her Achilles tendon. Culture with MRSA. Current treatment with Dapto -ASA 325mg for VTE. PT/OT while IP for gait training, assistive device training, and assessment of functional status with NWB of left extremity. She will need at least 6 week of IV abx, PICC placed. She is stable for discharge to rehab. Will need follow up with podiatry for further surgical intervention for tendon transplant. Discharge Note New Diagnosis: Osteomyelitis/MRSA New Medications: Daptomycin/ASA/ pain control Follow Up: PCP/Podiatry Latest Assessment & Plan (1) Osteomyelitis Current Visit: Yes Status: Acute Qualifiers: Osteomyelitis type: other acute Osteomyelitis location: foot Laterality: left Qualified Code(s): M86.172 - Other acute osteomyelitis, left ankle and foot Assessment & Plan: - XR left foot 06/10/23 3 nonweightbearing views left foot demonstrates osteopenia, mild 1st tarsometatarsal degenerative changes, posterior calcaneal surgery with orthopedic screw/heterotopic ossifications, tiny plantar heel spur, and small cuboid accessory ossicle. No other bony, articular, or soft tissue abnormalities - XR left ankle 06/10/23 3 view left ankle demonstrates small focus subcutaneous air posterior to calcaneus presumed know infection. Elswhere osteopenia, posterior calcaneal surgery with orthopedic screw/heterotopic ossifications, tiny plantar heel spur, and diffuse soft tissue swelling. - Unable to feel pedal pulse prior to surgery, doppler used and unable to find. - Able to feel posterior tibial, and popliteal pulses- 2+ - Podiatry consulted and took to surgery today - Post op MWB on affected side - Vancomycin and zosyn- - deep wound cultures pending - narcotic pain control - PT/ OT - ASA 325mg daily for VTE - Dressing to remain clean and dry. Reinforce with Kerlix/DAR as necessary. - smoking cessation to aide in healing - consider rehab placement - BC x2 pending - Arterial duplex Monday as they do not do this on the . 06/12: -Wound culture with MRSA -Per podiatry PICC for dapto -DC Zocor due to interaction with dapto -Rehab placement pending -art duplex pending -achilles removed, will need future surgical intervention for repair 06/13: -Arterial duplex with Minimal arteriosclerotic disease lower leg. Negative for critical stenosis/obstruction. Unable to obtain left toe brachial index due to left arm PICC line in situ and patient's inability to compress and obtain pressure reading -Rehab pending, continue Dapto for now -PT/OT to continue while IP Code(s): M86.9 - OSTEOMYELITIS, UNSPECIFIED (2) Open wound of heel Current Visit: Yes Status: Acute Qualifiers: Encounter type: initial encounter Laterality: left Qualified Code(s): S91.302A - Unspecified open wound, left foot, initial encounter Assessment & Plan: - XR of foot and heel - see results above in osteomyelitis dx - Consider MRI to r/o osteomyelitis - unable to do on the weekened - Pt reports screws in LLE placed over [address] Marcano with podiatry- she is unsure of they are MRI compatible. Will Obtain old records. - ESR elevated - CRP pending - Podiatry consulted- scheduled for surgery 06/11 - Wound culture gram positive - sensitivity pending - Vancomycin started in ER- continue - Zosyn started by podiatry - Narcotic pain medication - tylenol for fever - zofran for nausea PRN - BC x2 pending - WBC 12.5 06/10 - Last Tetnus> 5 yrs ago- booster ordered -Per pharmacy we do not have Td so TDAP gave. - labs pending 06/11 06/12: -see above Code(s): S91.309A - UNSPECIFIED OPEN WOUND, UNSPECIFIED FOOT, INITIAL ENCOUNTER (3) VEENA (acute kidney injury) Current Visit: Yes Status: Acute Assessment & Plan: - Creat 1.44, BUN 22, GFR 39.9 - Baseline creat 1.05 - IVF 06/11 - Labs pending- went to surgery before they were drawn this morning 06/13: -resolved Code(s): N17.9 - ACUTE KIDNEY FAILURE, UNSPECIFIED (4) HTN (hypertension) Current Visit: Yes Status: Chronic Assessment & Plan: - BP stable - Continue home meds Code(s): I10 - ESSENTIAL (PRIMARY) HYPERTENSION (5) Hypothyroidism Current Visit: Yes Status: Chronic Qualifiers: Hypothyroidism type: due to acquired atrophy of thyroid Qualified Code(s): E03.4 - Atrophy of thyroid (acquired) Assessment & Plan: - continue synthroid Code(s): E03.9 - HYPOTHYROIDISM, UNSPECIFIED (6) Smoker Current Visit: Yes Status: Chronic Assessment & Plan: - advised cessation - refused nicotine patch Code(s): F17.200 - NICOTINE DEPENDENCE, UNSPECIFIED, UNCOMPLICATED (7) Neuropathy Current Visit: Yes Status: Chronic Assessment & Plan: - continue gabapentin (8) Transaminitis -labs downtrending, may be secondary to infection, will continue to monitor 06/13: -Labs continue to downtrend (9) Hypokalemia -potassium low at 3.3, will replenish VTE: ASA PPI: protonix Next of Kin: , D/C plan: 2-3 days Code status: Full I spent 35 minutes [id number] with the patient on the day of discharge performing discharge exam, discussing hospital stay and discharge instructions with patient and caregivers, preparation of discharge records, prescriptions & referral forms and addressing any questions/concerns the patient had as documented above. - Vitals & Intake/Output Vital Signs: Vital Signs Temperature 98.9 F 06/14/23 03:48 Pulse Rate 83 06/14/23 03:48 Respiratory Rate 17 06/14/23 03:48 Blood Pressure 110/77 06/14/23 03:48 O2 Sat by Pulse Oximetry 97 06/14/23 03:48 Intake & Output: Intake & Output 06/11/23 06/12/23 06/13/23 06/14/23 11:59 11:59 11:59 11:59 Intake Total 2065 1571 1260 2160 Output Total 400 1350 600 401 Balance 1665 544 447 9812 Weight 83.2 kg 83.2 kg - Lab Result Diagrams: 06/14/23 05:14 06/14/23 05:14 Lab Results-Last 24 Hrs: Lab Results-Last 24 Hours 06/13/23 06/13/23 06/14/23 Range/Units 05:20 10:37 05:14 WBC 9.0 (4.0-10.5) x10^3/uL RBC 4.11 (4.1-5.4) x10^6/uL Hgb 13.0 (12.0-16.0) g/dL Hct 38.7 (35-47) % MCV 94.2 (78-100) fL MCH 31.6 (26-32) pg MCHC 33.6 (32-36) g/dL RDW 13.0 (11.5-14.0) % Plt Count 246 (150-450) x10^3/uL MPV 9.8 (7.5-11.0) fL Gran % 66.8 H (36.0-66.0) % Immature Gran % (Auto) 1.3 H (0.00-0.4) % Nucleat RBC Rel Count 0.0 (0.00-0.1) % Eos # (Auto) 0.23 (0-0.5) x10^3/uL Immature Gran # (Auto) 0.12 H (0.00-0.03) x10^3u/L Absolute Lymphs (auto) 1.69 (1.0-4.6) x10^3/uL Absolute Monos (auto) 0.85 (0.0-1.3) x10^3/uL Absolute Nucleated RBC 0.00 (0.00-0.01) x10^3u/L Lymphocytes % 18.8 L (24.0-44.0) % Monocytes % 9.5 (0.0-12.0) % Eosinophils % 2.6 (0.00-5.0) % Basophils % 1.0 (0.0-0.4) % Absolute Granulocytes 6.01 (1.4-6.9) x10^3/uL Basophils # 0.09 (0-0.4) x10^3/uL Potassium 3.8 (3.5-5.1) mmol/L Magnesium 2.1 (1.6-2.3) mg/dL Micro Results-Entire Visit: Microbiology 06/11/23 08:45 Anaerobic Culture Result 1 - Final Bone - Left Not Reportable Anaerobic Culture Result 2 - Final Not Reportable Anaerobic Culture Result 3 - Final Not Reportable Anaerobic Culture Result 4 - Final Not Reportable Antimicrobic Susceptibility - Final Not Reportable Aerobic Culture Result 1 - Final Not Reportable Aerobic Culture Result 2 - Final Not Reportable - Final Not Reportable Aerobic Culture Result 4 - Final Not Reportable Aerobic & Anaerobic Susceptibility - Final Not Reportable 06/10/23 11:59 Wound Culture - Final Calcaneus - Left Methicillin Resist Staph Aur 06/10/23 14:48 Blood Culture - Preliminary Blood 06/10/23 14:40 Blood Culture - Preliminary Blood - Radiology Exams Ordered Rad Exams-Entire Visit: Radiology Procedures Category Date Time Status DONNA/SEG PRESSURE UNILAT [US] Routine Exams 06/12/23 08:00 Completed ARTERIAL UNILAT/LTD LOWER EXT [US] Routine Exams 06/12/23 08:00 Completed CHEST 1 VIEW (PORTABLE) Stat Exams 06/12/23 12:31 Completed - Procedures and Test Procedures and Tests throughout Hospitalization: Therapy Orders & Screens 06/10/23 15:33 Respiratory Therapy Assessment DAILY Comment: Diagnosis: left foot pain, veena 06/11/23 09:18 OT Eval and Treat (MD Order) ONCE Comment: Physician Instructions: Reason For Exam: Diagnosis: left foot pain, veena 06/11/23 09:19 PT Eval & Treat (MD Order) ONCE Reason for Eval:: achilles tendon infection/ Excision. Non weight bearing to left lower extremity. Diagnosis: left foot pain, veena 06/12/23 08:00 PT Eval & Treat (MD Order) ONCE Reason for Eval:: non-weight bearing to left foot Diagnosis: left foot pain, veena Discharge Exam General Appearance: no apparent distress Neurologic Exam: alert, oriented x 3, cooperative Eye Exam: PERRL Ears, Nose, Throat Exam: moist mucous membranes Neck Exam: normal inspection Respiratory Exam: normal breath sounds, lungs clear Cardiovascular Exam: regular rate/rhythm, normal heart sounds Gastrointestinal/Abdomen Exam: soft, normal bowel sounds Pelvic Exam: deferred Rectal Exam: deferred Back Exam: normal inspection Extremity Exam: other (LLE with surgical dressing CDI) Skin Exam: other (LLE with surgical dressing CDI) Final Diagnosis/Problem List - Final Discharge Diagnosis/Problem (1) Osteomyelitis Current Visit: Yes Status: Acute Code(s): M86.9 - OSTEOMYELITIS, UNSPECIFIED (2) VEENA (acute kidney injury) Current Visit: Yes Status: Acute Code(s): N17.9 - ACUTE KIDNEY FAILURE, UNSPECIFIED (3) Open wound of heel Current Visit: Yes Status: Acute Code(s): S91.309A - UNSPECIFIED OPEN WOUND, UNSPECIFIED FOOT, INITIAL ENCOUNTER (4) HTN (hypertension) Current Visit: Yes Status: Chronic Code(s): I10 - ESSENTIAL (PRIMARY) HYPERTENSION (5) Hypothyroidism Current Visit: Yes Status: Chronic Code(s): E03.9 - HYPOTHYROIDISM, UNSPECIFIED (6) Neuropathy Current Visit: Yes Status: Chronic Code(s): G62.9 - POLYNEUROPATHY, UNSPECIFIED (7) Smoker Current Visit: Yes Status: Chronic Code(s): F17.200 - NICOTINE DEPENDENCE, UNSPECIFIED, UNCOMPLICATED (8) Transaminitis Current Visit: Yes Status: Acute Code(s): R74.01 - ELEVATION OF LEVELS OF LIVER TRANSAMINASE LEVELS (9) Hypokalemia Current Visit: Yes Status: Acute Code(s): E87.6 - HYPOKALEMIA - Discharge Discharge Date: 06/14/23 Disposition: DC TO ANY "OTHER" HALF-WAY Condition: Stable Prescriptions: New DAPTOmycin 500 mg IV QPM #14 iv piggy Aspirin EC 325 mg [Ecotrin 325 MG] 325 mg PO DAILY #30 tablet Docusate Sodium 100 mg [Docusate Sodium 100 MG] 100 mg PO BID cap PANTOPRAZOLE 40 mg Tablet [Protonix 40MG Tablet] 40 mg PO DAILY tablet Continue Propranolol HCl [Innopran Xl] 120 mg PO DAILY Atorvastatin Calcium [Lipitor] 40 mg PO HS Lisinopril 10 mg [Zestril 10 MG] 10 mg PO DAILY Levothyroxine Sodium 88 Mcg [Synthroid 88 Mcg] 88 mcg PO DAILY Amlodipine Besylate 5 mg [Norvasc 5 mg] 1 ea DAILY Umeclidinium Brm/Vilanterol Tr [Anoro Ellipta 62.5-25 Mcg INH] 1 each IH DAILY Ubidecarenone [Coenzyme Q10] 100 mg PO BID Gabapentin [Neurontin ] 100 mg PO BID Albuterol Sulfate [Proair Digihaler] 90 mcg IH Q6H PRN PRN Reason: Shortness Of Breath Instructions: Methicillin-resistant Staphylococcus aureus (MRSA) Additional Instructions: ADMIT TO [facility] REGULAR, HIGH PROTEIN DIET PROSTAT 64 30 MLS TID WITH MEALS PT/OT- SEE WTBEARING RESTRICTIONS ROUTINE PICC LINE CARE DR. MAY ORDERS: LEAVE DRESSING CLEAN, DRY AND INTACT- CHANGE EVERY OTHER DAY PER DR. MAY'S ORDER CONTINUE ASPIRIN FOR DVT PROPHYLAXIS CONTINUE DAPTOMYCIN IV DAILY FOR 2 MORE WEEKS NON WEIGHTBEARING OP FOOT (LEFT) DR MAY'S OFFICE TO SEND IN RX FOR PAIN MEDS F/U WITH DR. MAY SCHEDULED Follow up with: YADIRA PEDERSEN DPM [ACTIVE STAFF] - 06/21/23 9:30 am () RICKEY GUZMAN DO [Primary Care Provider] - 06/21/23 11:00 am
[2023-06-14 05:32] LABS: ALBUMIN 3.6 g/dL (3.5-5.0); ANION GAP 9.7 MEQ/L (5-15); BILIRUBIN,TOTAL 0.9 mg/dL (0.2-1.3); Calcium 9.1 mg/dL (8.4-10.2); Creatinine 1 0.67 mg/dL (0.52-1.04); EST GLOMERULAR FILTRATION RATE 95.7 ML/MIN; Potassium 3.5 mmol/L (3.5-5.1); Total Protein 6.9 g/dL (6.3-8.2)
[2023-06-14] MEDS: DUONEB 0.5-3 MG/3 ml Neb IH SCH (07:07)
[2023-06-14 07:09] VITALS: RESP 16
[2023-06-14 07:33] VITALS: TEMP 97.9
--- NOTE | 2023-06-14 08:24 | OP ---
SURGERY DATE/TIME: 06/11/2023 0714 PREOPERATIVE DIAGNOSES: 1) Infected Achilles tendon. 2) Infected left calcaneus to level of bone. 3) Decubitus ulcer, pressure ulcer to heel. 4) Tobacco abuse. 5) Left heel pain. POSTOPERATIVE DIAGNOSES: 1) Infected Achilles tendon. 2) Infected left calcaneus to level of bone. 3) Decubitus ulcer, pressure ulcer to heel. 4) Tobacco abuse. 5) Left heel pain. PROCEDURES: 1) Incision and drainage with bone debridement to left calcaneus. 2) Partial calcaneal resection. 3) Achilles tendon debridement. SURGEON: Deep Page DPM. BRICK OFFBEARER: None. HEMOSTASIS: Thigh tourniquet set to 300 mm of Mercury for approximately 40 total tourniquet minutes. ANESTHESIA: General. ESTIMATED BLOOD LOSS: Approximately 10 cc. MATERIALS: 3-0 Nylon, 2-0 Nylon, Suturegard. INJECTABLES: 20 cc of 1:1 mixture of 1% lidocaine plain and 0.5% bupivacaine plain injected in a V block-type fashion to the Achilles tendon. INDICATION FOR SURGERY: Marialuisa is a very pleasant 68-year-old female who was encountered the day before the procedure on 06/10/2023. The patient the week prior had been noticing some pain to her left heel. The patient has had an extensive surgical history to the left lower extremity with Dr. Marcano that required her to be off of her foot for one year and required cadaver grafting. I am unsure if is bone or tendon. However, she did subsequently get an infection at that time. Over the last several years, she has had no issue however on 06/07/2023 she did have some breakdown and ulceration of the posterior heel that the patient tried to self-treat by draining. However, noted that the wound probed to the level of the tendon and bone beneath and was concerned. She presented to the emergency department where she was started on IV vancomycin and shortly thereafter x-rays were taken and patient encounter took place. The decision was made given the patient's extensive clinical history with infection in the past to proceed with debridement of the wound and if necessary proceed with debridement of the tendon, possible excision of the tendon and possible debridement of the bone. The patient understands all risks, complications and benefits of surgical intervention at this time including but not limited to infection, hematoma, seroma, possibility of delayed wound healing, nonwound healing and possible need for further surgical intervention at a later date. Given that this is an infection case with repeat history to the left ankle, this is undoubtedly the first stage of two to three procedures prior to the patient returning to weightbearing status without assistance. No guarantees were provided as to the outcome as the wound clinically had extensive infectious appearance with significant cellulitis and the ability to probe to bone and tendon with streaking up her leg. There is a possibility of inability to salvage the limb. However, I do believe that this is low at this time given the options we continue to have at this moment. The patient was allowed plenty of time to ask questions which were answered to her apparent satisfaction. It is with that we decided to proceed. DESCRIPTION OF PROCEDURE AND FINDINGS: The patient was brought into the OR and placed under general anesthesia on the cart. A well-padded thigh tourniquet was applied to her left thigh and the tourniquet was inflated to 300 mm of Mercury. At this time the patient was transferred carefully from the cart to the prone position on the bed. At this time the left lower extremity is prepped and draped in the typical sterile fashion. Under direct visualization of the wound, probe of the wound took place while the patient was under anesthesia and probed directly to soft and necrotic bone. The decision was made to inspect. Incision and drainage took place where initially incision was taken down to the level of the Achilles tendon. The Achilles tendon looked severely diseased with tracking infection of the paratenon on the posterior medial side with purulent drainage. The disease was so extensive that the decision was made to excise the Achilles tendon entirely. From this standpoint, the bone was inspected and curettage as well as a partial calcanectomy took place resecting any of the spurs as well as any of the necrotic and infected bone this was sent off the field for pathologic assessment as well as cultures. At this time, copious amounts of sterile saline were utilized to flush the surgical site. The wound edges were loosely approximated to allow for drainage. Following this, a well-padded dressing consisting of Betadine, Adaptic, 4x4, Kerlix, ABD and off-loading posterior splint were applied to the patient's left lower extremity with the foot slightly plantar flexed. The patient was then reversed from anesthesia and returned to the postoperative anesthesia care unit with vital signs stable and vascular status intact. The patient handled the anesthesia as well as the procedure without significant complication. Postoperative orders as indicated in the patient's discharge chart.
[2023-06-14] MEDS: SYNTHROID 88 MCG PO SCH (09:20)
[2023-06-14] MEDS: NON-FORMULARY ITEM PO SCH (09:20)
[2023-06-14] MEDS: Docusate Sodium 100 MG PO SCH (09:20)
[2023-06-14] MEDS: Zestril 10 MG PO SCH (09:20)
[2023-06-14] MEDS: Protonix 40MG Tablet PO SCH (09:20)
[2023-06-14] MEDS: Neurontin PO SCH (09:20)
[2023-06-14] MEDS: NORVASC 5 MG PO SCH (09:20)
[2023-06-14] MEDS: Ecotrin 325 MG PO SCH (09:20)
[2023-06-14 11:06] VITALS: BP 132/73; PULSE 86; O2SAT 100
== END 2023-06-14 12:30 | DRG 493 ==
LOC: ED 09:57 → MED SURG 14:00 → OBSVTOIN 06-11 09:22
PROVIDERS: ADMIT Internal Medicine; ATTEND Internal Medicine
PROC: 0J9R0ZZ Drainage of Left Foot Subcutaneous Tissue and Fascia, Open Approach (ICD-10-PCS; principal; 2023-06-11)
PROC: 0SBG0ZZ Excision of Left Ankle Joint, Open Approach (ICD-10-PCS; 2023-06-11)
PROC: 0QBM0ZZ Excision of Left Tarsal, Open Approach (ICD-10-PCS; 2023-06-11)
DX: M86.172 Other acute osteomyelitis, left ankle and foot (principal); N17.9 Acute kidney failure, unspecified; S91.302A Unspecified open wound, left foot, initial encounter; I10 Essential (primary) hypertension; E03.9 Hypothyroidism, unspecified; F17.200 Nicotine dependence, unspecified, uncomplicated; G62.9 Polyneuropathy, unspecified; L89.626 Pressure-induced deep tissue damage of left heel; R74.01 Elevation of levels of liver transaminase levels; E87.6 Hypokalemia; E78.5 Hyperlipidemia, unspecified; M79.672 Pain in left foot; R73.03 Prediabetes; Z79.899 Other long term (current) drug therapy; Z20.828 Contact with and (suspected) exposure to other viral communicable diseases
CPT/HCPCS: 27654; 28005; 28120; 29515; 36000; 36415; 36573; 71045; 73610; 73620; 73630; 76000; 80053; 80202; 80307; 83036; 83735; 84132; 85025; 85027; 85652; 86140; 87040; 87070; 87075; 87077; 87116; 87186; 87205; 87206; 93922; 93926; 94640; 94760; 97161; 97165; 97530; 99223; 99232; 99285; G0378; Q3014; 90715; A6260; J0690; J0878; J1100; J1170; J1885; J2001; J2405; J2704; J3010; A9270-GY; J3370

== ENCOUNTER 2023-06-22 12:04 | Day surgery (SDC) | payer MEDICARE ==
[2023-06-22] MEDS ORDERED: CEFAZOLIN 2 GM-D5W BAG** 2 GM/50 ML ML IV ONE (12:20)
[2023-06-22] MEDS ORDERED: Lactated Ringers 1,000 ML IV ONE (12:20)
[2023-06-22] MEDS: Lactated Ringers 1,000 ML IV SCH (12:25)
[2023-06-22] MEDS: CEFAZOLIN 2 GM-D5W BAG** 2 GM/50 ML ML IV SCH (12:25)
[2023-06-22] MEDS ORDERED: Marcaine Mpf 0.5% Vial 30 Ml ONE (12:31)
[2023-06-22] MEDS ORDERED: Xylocaine 1% Vial 30 ML PF IJ ONE (12:31)
[2023-06-22 12:36] LABS: Hematocrit 43.6 % (35-47); Hemoglobin 14.3 g/dL (12.0-16.0); Mean Cell Volume 95.2 fL (78-100); Mean Corpuscular Hemoglobin 31.2 pg (26-32); Mean Corpuscular Hgb Concent. 32.8 g/dL (32-36); Mean Platelet Volume 9.9 fL (7.5-11.0); Platelet Count 322 x10^3/uL (150-450); Red Blood Count 4.58 x10^6/uL (4.1-5.4); Red Cell Distribution Width 12.8 % (11.5-14.0); White Blood Count 14.7 x10^3/uL (4.0-10.5)
[2023-06-22 12:49] VITALS: RESP 16
[2023-06-22 13:08] LABS: ALBUMIN 4.2 g/dL (3.5-5.0); ANION GAP 9.6 MEQ/L (5-15); BILIRUBIN,TOTAL 0.8 mg/dL (0.2-1.3); Calcium 9.7 mg/dL (8.4-10.2); Creatinine 1 0.89 mg/dL (0.52-1.04); Potassium 4.9 mmol/L (3.5-5.1); Total Protein 8.3 g/dL (6.3-8.2)
[2023-06-22] MEDS ORDERED: BRIDION 200MG/2ML IV ONE (14:29)
[2023-06-22] MEDS ORDERED: TORAdol 30 mg Injection ONE (14:29)
[2023-06-22] MEDS ORDERED: Decadron 4 MG INJ ONE (14:29)
[2023-06-22] MEDS ORDERED: Xylocaine-Mpf 2% 5 Ml Vial ONE (14:29)
[2023-06-22] MEDS ORDERED: DIPRIVAN 200 MG/20 ML IV ONE (14:29)
[2023-06-22] MEDS ORDERED: Zemuron 100 MG/10 ML ONE (14:29)
[2023-06-22] MEDS ORDERED: Zofran 4 MG/2 ML VIAL ONE (14:29)
[2023-06-22] MEDS ORDERED: SUBLIMAZE 100 MCG/2 ML ONE ×3 (14:30→16:29)
--- NOTE | 2023-06-22 16:35 | XRAY ---
Indication: Incision and drainage left heel with bone debridement and hardware removal. Intraoperative fluoroscopy provided for 32 seconds. 5 digital spot images submitted for interpretation demonstrates instrumentation posterior calcaneus with removal of calcaneal screw. Correlate with intraoperative findings/report.
--- NOTE | 2023-06-22 16:43 | XRAY ---
32 seconds of fluoroscopy was used in surgery for a left heel incision and drainage with bone debridement and hardware removal.
[2023-06-22] MEDS ORDERED: Sodium Chloride 0.9% 10 ML FLUSH Syringe PICC PRN (17:02)
[2023-06-22 17:05] VITALS: BP 135/88; PULSE 65; TEMP 97.7; O2SAT 96
--- NOTE | 2023-06-23 09:00 | OP ---
SURGERY DATE/TIME: 06/22/2023 1420 PREOPERATIVE DIAGNOSES: 1) Pressure ulcer left heel. 2) Osteomyelitis. 3) Infected Achilles tendon. 4) Left foot pain. 5) Previous infection to left heel. POSTOPERATIVE DIAGNOSES: 1) Pressure ulcer left heel. 2) Osteomyelitis. 3) Infected Achilles tendon. 4) Left foot pain. 5) Previous infection to left heel. PROCEDURES: 1) Incision and drainage. 2) Bone debridement left heel. 3) Achilles tendon debridement. 4) Removal of hardware. SURGEON: Deep Page DPM. EMBROIDERY DESIGNER: None. ANESTHESIA: General plus preoperative local block consisting of 30 cc of 1:1 mixture of 1% lidocaine plain and 0.5% bupivacaine plain injected in a V block-type fashion. HEMOSTASIS: Pressure dressing. ESTIMATED BLOOD LOSS: Approximately 20 cc. MATERIALS: 0.5 inch Iodoform packing, 2-0 Nylon. INJECTABLES: 30 cc of 1:1 mixture of 1% lidocaine plain and 0.5% bupivacaine plain injected in a V block-type fashion preoperatively. INDICATION FOR SURGERY: Marialuisa is a very pleasant 68-year-old female known to my service for a recent encounter during inpatient stay for an infected Achilles tendon, bone debridement and resection of the Achilles tendon took place during this procedure where a pressure ulceration was also excised. Pathology was returned demonstrating bone infection and the patient has been in a halfway with IV antibiotics over the course of the last week and a half. At this time, reason for infection was suspected to be likely residual hardware from previous surgical intervention with Dr. Marcano where it did get infected, that infection was growing Escherichia coli. However at this time, there was a new infection of methicillin-resistant Staphylococcus aureus. As a result the patient has been having dressing changes at the halfway and seemingly doing well with minimal necrosis of the wound edges. However given the fact that there is infected hardware the decision was made to proceed to remove that hardware as well as proceed with bone debridement. At this time the patient understands risks, complications and benefits of surgical intervention including but not limited to infection, hematoma, seroma, possibility of delayed wound healing, nonwound healing, possibility of failure of surgical intervention and possible need for further surgical intervention at a later date. This is a staged procedure likely the second of hopefully three if we are able to eradicate the bone infection. However, the patient's skin is necrosing and this may require some grafting at a later date. The patient understands that there are no guarantees and there is possibility that this can lead to loss of limb or possibly even loss of life. At this time the patient understands these risks and wishes to proceed. DESCRIPTION OF PROCEDURE AND FINDINGS: The patient is brought into the OR on the cart and placed under general anesthesia and rotated to the prone position carefully. Following this, the right lower extremity was prepped and draped in the typical sterile fashion and lowered onto the surgical field. Sutures were removed from the surgical site and the wound was inspected. There was a significant amount of necrotic tissue initially on immediate inspection of the deficit. The remainder of the Achilles tendon was inspected and deemed to be diseased which was then resected up until the myotendinous junction. From this standpoint inspection of the bone was performed at this time and softness of the bone was encountered. Superficial and deep specimen were taken at this time and handed off the field for pathologic assessment. Following this, a rongeur was utilized to remove the hardware from the site of the previous anchoring of the Achilles tendon. The bone was then aggressively debrided utilizing rongeurs and curette. A 1,000 ml bag of Bactisure was utilized to flush the surgical site and then following this 3 liters of sterile saline were utilized to flush the site. Wound edges were excised that were necrotic. A healthy bleeding edge was inspected on the remaining tissue. From that standpoint, loose approximation of the surgical wound edges was performed utilizing 2-0 Nylon, 0.5 inch Iodoform packing was then utilized to pack the deficit and left open. A dressing consisting of Betadine, Adaptic, 4x4, Kerlix, ABD and a well-padded posterior splint was applied to the patient's left lower extremity. The patient was then reversed from anesthesia and returned to the postoperative anesthesia care unit with vital signs stable and vascular status intact. The patient handled the anesthesia as well as the procedure without significant complication. Postoperative orders as indicated in the patient's discharge chart.
== END 2023-06-22 17:33 ==
LOC: SDC 12:04
PROVIDERS: ATTEND Podiatrist Foot & Ankle Surgery
DX: L89.629 Pressure ulcer of left heel, unspecified stage (principal); M86.9 Osteomyelitis, unspecified; M76.62 Achilles tendinitis, left leg; M79.672 Pain in left foot
CPT/HCPCS: 20680; 27654; 28005; 36415; 73650; 76000; 80053; 85027; 87070; 87075; 87116; 87205; 87206; 93005; A6260; J0690; J1100; J1642; J1885; J2001; J2405; J2704; J3010

== ENCOUNTER 2023-07-06 10:22 | Day surgery (SDC) | payer MEDICARE ==
[2023-07-06] MEDS ORDERED: Lactated Ringers 1,000 ML IV ONE (10:33)
[2023-07-06] MEDS ORDERED: CEFAZOLIN 2 GM-D5W BAG** 2 GM/50 ML ML IV ONE (10:33)
[2023-07-06] MEDS: CEFAZOLIN 2 GM-D5W BAG** 2 GM/50 ML ML IV SCH (10:37)
[2023-07-06] MEDS: Lactated Ringers 1,000 ML IV SCH (10:37)
[2023-07-06 10:50] LABS: Hematocrit 40.6 % (35-47); Hemoglobin 13.1 g/dL (12.0-16.0); Mean Cell Volume 96.7 fL (78-100); Mean Corpuscular Hemoglobin 31.2 pg (26-32); Mean Corpuscular Hgb Concent. 32.3 g/dL (32-36); Mean Platelet Volume 10.2 fL (7.5-11.0); Platelet Count 219 x10^3/uL (150-450); Red Cell Distribution Width 13.2 % (11.5-14.0); White Blood Count 11.8 x10^3/uL (4.0-10.5)
[2023-07-06 11:03] LABS: ALBUMIN 4.1 g/dL (3.5-5.0); ANION GAP 9.1 MEQ/L (5-15); BILIRUBIN,TOTAL 0.6 mg/dL (0.2-1.3); Calcium 9.1 mg/dL (8.4-10.2); Creatinine 1 0.67 mg/dL (0.52-1.04); EST GLOMERULAR FILTRATION RATE 95.7 ML/MIN; Total Protein 7.2 g/dL (6.3-8.2)
[2023-07-06] MEDS ORDERED: DIPRIVAN 200 MG/20 ML IV ONE (12:13)
[2023-07-06] MEDS ORDERED: SUBLIMAZE 100 MCG/2 ML ONE (12:13)
[2023-07-06] MEDS ORDERED: Versed 2 MG/2 ML Injection ONE (12:13)
[2023-07-06] MEDS ORDERED: Xylocaine-Mpf 2% 5 Ml Vial ONE (12:13)
[2023-07-06] MEDS ORDERED: Naropin 0.5% 30 ML VIAL ONE (12:14)
[2023-07-06] MEDS ORDERED: Marcaine 0.5%/Epinephrine 10 ML ONE (12:20)
[2023-07-06] MEDS ORDERED: Zemuron 100 MG/10 ML ONE (12:50)
[2023-07-06] MEDS ORDERED: Decadron 4 MG INJ ONE (14:07)
[2023-07-06] MEDS ORDERED: Zofran 4 MG/2 ML VIAL ONE (14:07)
[2023-07-06] MEDS ORDERED: Ephedrine Sulfate 50 MG/ML ONE (14:12)
[2023-07-06] MEDS ORDERED: BRIDION 200MG/2ML IV ONE (15:36)
[2023-07-06] MEDS ORDERED: OFIRMEV 100 ML IV ONE (16:20)
[2023-07-06] MEDS ORDERED: DEXMEDETOMIDINE 80 MCG/20ML-NS IV ONE (16:33)
[2023-07-06] MEDS ORDERED: TORAdol 30 mg Injection ONE (16:41)
--- NOTE | 2023-07-06 17:27 | XRAY ---
Indication: Left flexor hallucis longus tendon transfer, peroneous brevis muscle transfer, and application of multiplanar external fixator. Intraoperative fluoroscopy provided for 1 minute 57 seconds. 26 digital spot images submitted for some interpretation demonstrates tunnel radiolucency posterior calcaneus with plantar orthopedic button and incompletely visualized external fixation device. Correlate with intraoperative findings/report.
[2023-07-06 18:27] VITALS: RESP 16; TEMP 96.7; O2SAT 97
[2023-07-06 18:37] VITALS: BP 118/70; PULSE 69
[2023-07-06] MEDS: Sodium Chloride 0.9% 10 ML FLUSH Syringe PICC PRN (18:39)
[2023-07-06 19:47] LABS: Appearance Clear (Clear); Bacteria None Seen /HPF (None Seen); Bilirubin Negative (Negative); Blood Negative (Negative); Epithelial Cells None Seen /HPF (None Seen); Glucose, Urine Negative (Negative); Hyaline Casts NONE SEEN /LPF (0-2); Ketones Negative (Negative); Leukocyte Esterase Negative (Negative); Nitrite Negative (Negative); Ph 7.5 (4.6-8.0); Protein,Urine Dip Negative (Negative); RBC 0-2 /HPF (0-5); Specific Gravity 1.015 (1.005-1.030); WBC 0-2 /HPF (0-5)
--- NOTE | 2023-07-07 09:31 | XRAY ---
One minute and 57 seconds of fluoroscopy was used in surgery for a left flexor hallucis longus tendon transfer, peroneous brevis muscle transfer, and application of multiplanar external fixator.
--- NOTE | 2023-07-10 13:54 | OP ---
SURGERY DATE/TIME: 07/06/2023 1329 PREOPERATIVE DIAGNOSES: 1) Pressure ulceration full thickness stage 4 left heel. 2) Osteomyelitis left calcaneus. 3) Achilles tendonitis. 4) Infection of left lower extremity. 5) Loss of function left lower extremity. 6) Left heel pain. POSTOPERATIVE DIAGNOSES: 1) Pressure ulceration full thickness stage 4 left heel. 2) Osteomyelitis left calcaneus. 3) Achilles tendonitis. 4) Infection of left lower extremity. 5) Loss of function left lower extremity. 6) Left heel pain. PROCEDURES: 1) Incision and drainage with bone debridement left calcaneus. 2) Flexor halluces longus tendon transfer left great toe to left calcaneus. 3) Peroneus brevis muscle flap to left heel. 4) Application of Integra Synthetic skin substitute. 5) Application of multiplanar external fixator left lower extremity. SURGEON: Deep Page DPM. ENAMEL DIPPER: None. ANESTHESIA: General plus a preoperative popliteal and saphenous block. See anesthesia report for details. HEMOSTASIS: Thigh tourniquet set 300 mm of Mercury for a total of 115 total tourniquet minutes. ESTIMATED BLOOD LOSS: Approximately 20 cc. MATERIALS: Asmita ToggleLoc with ZipLoop. Integra 4 x 10 with bilayer Matrix and an Orthofix TrueLok Ilizarov frame. INJECTABLES: See anesthesia report for details. INDICATION FOR SURGERY: Marialuisa is a very pleasant 68-year-old female well known to my service at this point having presented approximately one month ago for concerns of a new left heel ulceration. The patient has a long-standing history of surgical interventions to the left heel with multiple infections. However, had resolved for a number of years. Despite pain, the patient was uncomplicated at that time. The patient did have some pressure to this heel, which broke down and resulted in a wound that probed to bone to the left heel. As a result, the wound was explored and deemed to be with a positive probe to bone this required multiple interventions, which demonstrated osteomyelitis of the left calcaneus as well as a completely infected Achilles tendon. At this time, the patient's left Achilles tendon was completely infected and devitalized and required aggressive debridement on previous interventions. As far as bone infection, we did have a positive finding initially. However, second round bone biopsies as well as IV antibiotics demonstrate that there was resolution of the osteomyelitis. From that standpoint, the patient does have a significant soft tissue defect at the posterior aspect of the left leg. As a result, we decided on proceeding with maintaining function and getting the wounds closed as quickly as possible. The patient understands all risks, complications and benefits of surgical intervention including but not limited to infection, hematoma, seroma, possibility of delayed wound healing, nonwound healing and possibility of failure of surgical intervention, possible loss of mobilization and possible loss of limb and possible loss of life. The patient understands all of these risks and wishes to proceed at this time. There have been no guarantees provided as to the outcome of surgical intervention. It is at this time we decided to proceed. DESCRIPTION OF PROCEDURE AND FINDINGS: The patient was brought to the postoperative anesthesia care unit prior to the procedure and a popliteal and saphenous block was provided per anesthesia. See anesthesia report for details. Following this, the patient was brought into the OR and placed on the OR table in the supine position. General anesthesia was administered until the patient was sedated. Following this, a well-padded thigh tourniquet was applied to the patient's right thigh and based on blood pressure tourniquet was set to 300 mm of Mercury. At this time the left lower extremity was prepped and draped in the typical sterile fashion and lowered onto the surgical field. Initially on inspection, the wound was debrided at the edges of the wound to check for healthy bleeding which was inspected. Also, the calcaneus was debrided utilizing a combination of 15 blade, curette, rongeurs. Bone biopsy was taken to be sure of the diagnosis of the resolution of the osteomyelitis. Following this, copious amounts of sterile saline were utilized to flush the surgical site. After this, attention was directed to the posterior compartment of the leg where the flexor hallucis longus tendon was identified this was deemed to be healthy at this time. The hallux was then plantar flexed and curled to its greatest extent. The flexor hallucis longus tendon was pulled from its posterior aspect and a short harvest was performed making sure to use a 15 blade and swiping towards the level of the bone. Following this, a whipstitch was then applied to the distal end of the flexor hallucis longus tendon then a ToggleLoc with ZipLoop was utilized to anchor the flexor hallucis longus tendon into the footprint of the Achilles tendon angling the ToggleLoc so as not to be on the weight-bearing surface this was checked and deemed to be adequate, lessen tension following the transfer. Following this, attention was directed to the lateral compartment where landmarks were identified utilizing an 8 megahertz ultrasound. The peroneal perforators were identified at 5 and 10 cm just proximal to the fibula. From that standpoint, decision was planned 1 cm posterior to the fibula as well as stopping approximately 20 cm proximal of this point and appropriately 12 cm inferior to the common peroneal nerve. Arc of rotation was tested and this was deemed to be adequate to the posterior aspect of the deficit. Following this, dissection was carried down carefully utilizing a 10 blade this was carried down to the level of the fascia, which was incised. Once the fascia was incised quickly the anterior compartment was identified and the peroneus brevis and peroneus longus muscle and tendons were identified. At this time, tracing all of the perforators from the anterior compartment and from the periosteum were identified and tagged with vessel loops. From this standpoint, this carried up to our most proximal extent. Once the perforators were identified, anything that was traveling within the anterior compartment was hand tied off to insure that once cut no retraction of the vasculature into the anterior compartment causing possible compartment syndrome. Once tied off, these were cut. The posterior aspect of the muscle belly was prepared and then the anterior aspect was reflected off of the peroneus longus tendon and as a large component was cut once freed from both sides of its soft tissue attachments making sure there were at least two to three perforators left distally. From that standpoint, the muscle was then rotated in a turned down fashion this was incised down the lateral compartment making sure not to damage the sural nerve in the process. Following this, the muscle was then stitched utilizing 2-0 Vicryl to the wound base carefully and the incision proximally was closed utilizing 2-0 Vicryl and surgical stapler. Following this, a 4 x 10 Integra was then applied to the muscle belly transfer utilizing skin stapler. Following this, a multilayer external extension was fixated making sure to stay as perpendicular as possible on the tibia and fibula at its proximal extent and staying out of the site of the tendon transfer to the flexor hallucis longus tendon transfer site. Following this, the position was checked on multiple views and made sure not to damage any neurovascular structures along the way. Following this, a dressing consisting of Betadine, Adaptic, Aquacel,4x4, Kerlix and DAR were applied to the right lower extremity. The patient was then reversed from anesthesia and returned to the postoperative anesthesia care unit with vital signs stable and vascular status intact. The patient handled the anesthesia as well as the procedure without significant complication. Postoperative orders as indicated in the patient's discharge chart.
== END 2023-07-06 18:42 ==
LOC: SDC 10:22
PROVIDERS: ATTEND Podiatrist Foot & Ankle Surgery
DX: L89.624 Pressure ulcer of left heel, stage 4 (principal); M86.9 Osteomyelitis, unspecified; M76.62 Achilles tendinitis, left leg; L03.116 Cellulitis of left lower limb; G83.12 Monoplegia of lower limb affecting left dominant side; M79.672 Pain in left foot; Z79.899 Other long term (current) drug therapy
CPT/HCPCS: 00300; 01170; 01470; 01480; 01756; 15275; 15738; 20692; 27691; 28005; 36415; 64447; 64450; 73630; 76000; 76937; 76942; 80053; 81001; 85027; 87086; C1713; Q4158; J0690; J1100; J1642; J1885; J2250; J2405; J2704; J2795; J3010; Q4104

== ENCOUNTER 2023-08-01 06:26 | Day surgery (SDC) | payer MEDICARE ==
[2023-08-01] MEDS: Lactated Ringers 1,000 ML IV SCH (07:03)
[2023-08-01 07:10] VITALS: RESP 18
[2023-08-01 07:22] LABS: Hemoglobin 12.5 g/dL (12.0-16.0); Mean Cell Volume 98.7 fL (78-100); Mean Corpuscular Hemoglobin 31.6 pg (26-32); Mean Corpuscular Hgb Concent. 32.1 g/dL (32-36); Mean Platelet Volume 9.8 fL (7.5-11.0); Platelet Count 236 x10^3/uL (150-450); Red Blood Count 3.95 x10^6/uL (4.1-5.4); Red Cell Distribution Width 13.6 % (11.5-14.0); White Blood Count 9.7 x10^3/uL (4.0-10.5)
[2023-08-01 07:31] LABS: ALBUMIN 3.9 g/dL (3.5-5.0); ANION GAP 9.5 MEQ/L (5-15); BILIRUBIN,TOTAL 0.4 mg/dL (0.2-1.3); Calcium 8.8 mg/dL (8.4-10.2); Creatinine 1 0.64 mg/dL (0.52-1.04); EST GLOMERULAR FILTRATION RATE 96.8 ML/MIN; Total Protein 6.7 g/dL (6.3-8.2)
[2023-08-01 07:32] LABS: INR 0.97 (0.8-3.0); PROTIME 10.6 SECONDS (9.4-12.5); PTT 25.6 SECONDS (25.1-36.5)
[2023-08-01] MEDS ORDERED: XYLOCAINE 1%/Epi 1:100000 MDV 20 ML ONE (08:20)
[2023-08-01] MEDS ORDERED: Marcaine Mpf 0.5% Vial 30 Ml ONE (08:20)
[2023-08-01] MEDS ORDERED: Xylocaine 1% Vial 30 ML PF IJ ONE (08:20)
[2023-08-01] MEDS ORDERED: Thrombin-JMI 5000 UNITS TP ONE (08:20)
[2023-08-01] MEDS ORDERED: MINERAL OIL LIGHT 10 ML FOR SURGERY ONE (08:20)
[2023-08-01] MEDS ORDERED: Xylocaine-Mpf 2% 5 Ml Vial ONE (08:44)
[2023-08-01] MEDS ORDERED: Decadron 4 MG INJ ONE (08:44)
[2023-08-01] MEDS ORDERED: DIPRIVAN 200 MG/20 ML IV ONE (08:44)
[2023-08-01] MEDS ORDERED: Zofran 4 MG/2 ML VIAL ONE (08:44)
[2023-08-01] MEDS ORDERED: SUBLIMAZE 100 MCG/2 ML ONE ×3 (08:49→11:14)
[2023-08-01] MEDS ORDERED: Ephedrine Sulfate 50 MG/ML ONE (09:08)
[2023-08-01] MEDS ORDERED: PHENYLEPHRINE HCL ONE (09:15)
[2023-08-01] MEDS ORDERED: Hydromorphone 1 mg/ml Injection ONE (11:15)
[2023-08-01 12:03] VITALS: PULSE 72
[2023-08-01 12:21] VITALS: TEMP 97.5; O2SAT 96
[2023-08-01] MEDS: Sodium Chloride 0.9% 10 ML FLUSH Syringe PICC PRN (12:27)
[2023-08-01 12:35] VITALS: BP 100/67
--- NOTE | 2023-08-02 08:47 | OP ---
SURGERY DATE/TIME: 08/01/2023 0838 PREOPERATIVE DIAGNOSES: 1) Left heel pain. 2) Achilles tendonitis with infection. 3) Surgical wound dehiscence. 4) Posterior heel wound pressure. 5) Difficulty with ambulation. POSTOPERATIVE DIAGNOSES: 1) Left heel pain. 2) Achilles tendonitis with infection. 3) Surgical wound dehiscence. 4) Posterior heel wound pressure. 5) Difficulty with ambulation. PROCEDURES: 1) Delayed primary closure of surgical incision. 2) Wound debridement to the left heel measurements preoperatively are 7.7 x 4.5. 3) Split thickness skin graft harvested from left thigh to left heel. SURGEON: Deep Page DPM. SLOT FLOOR ATTENDANT: None. ANESTHESIA: General. HEMOSTASIS: Pressure dressing. ESTIMATED BLOOD LOSS: Approximately 10 cc. MATERIALS: 4-0 Monocryl, 3-0 Nylon. INDICATION FOR SURGERY: Marialuisa is a very pleasant 68-year-old female who is on the fourth stage of a limb salvage procedure. The patient did have an infected Achilles tendon with ulceration that probed to bone. The patient has subsequently eradicated the bone infection with IV antibiotics as well as the tendon infection does appear to have resolved at this time. We had proceeded at that time with a transfer of the flexor hallucis longus into the calcaneus as well as peroneus brevis muscle flap to cover the defect from the necrosing edges of the soft tissue. At this time, the Integra Graft has taken over the top of the peroneus muscle belly and the muscle belly was viable for take of a split thickness skin graft. At this time, the patient understands all risks, complications and benefits of surgical intervention at this time including but not limited to infection, hematoma, seroma, possibility of delayed wound healing, nonwound healing, possible failure of surgical intervention and possible need for further surgical intervention at a later date. The patient understands all these risks and wishes to proceed. Plenty of time was allowed for the patient to ask questions which were answered to her apparent satisfaction. At this time, we decided to proceed. DESCRIPTION OF PROCEDURE AND FINDINGS: The patient is brought into the OR and placed on the OR table in the Chiquita lateral position. General anesthesia was administered and the patient was placed in a beanbag to keep her upright in a Chiquita lateral and pressure points were off-loaded. The left lower extremity with the external fixator was prepped and draped in the typical sterile fashion and lowered onto the surgical field. At this time attention was directed to the surgical wound dehiscence at the proximal and distal ends of the wounds which measured to be a total 7 cm in length. These areas were incised to make sure there was healthy bleeding at the edges and cleansed with sterile saline. 4-0 Monocryl was utilized for deep subcu closure in a simple interrupted-type fashion and 3-0 Nylon was utilized in a horizontal mattress-type fashion to ricardo the skin edges, this occurred in three separate locations and the wound was otherwise coapted elsewhere. At this time, attention was directed to the posterior heel wound where the measurements were once again taken to be 7.7 x 4.5. Wound debridement took place utilizing a curette. The plantar aspect of the muscle graft was nonviable and this was resected. The muscle flap was then advanced towards the plantar aspect of the wound and 2-0 Vicryl was utilized to bring this to coaptation at the edge. Following this, the debridement was performed to necrotic tissue. Copious amounts of sterile saline were utilized to flush the surgical site. A dermatome with a 2 inch blade set on 0.016 inch were then utilized. Pneumatic pressure was increased and the lateral aspect of the left thigh was cleansed with sterile saline and then 70% isopropyl alcohol and then covered in mineral oil. Following the application of mineral oil, the harvest was taken from the lateral aspect of the thigh measuring a total surface area of approximately 2 inches by 6 cm. Following this, the harvested split thickness graft was run through a dermatome and mesher in a 1 to 1.5 grate. Following this, the graft was secured utilizing 4-0 Monocryl at the edges of the wound making sure to get excellent apposition. A dressing consisting of Adaptic, Aquacel, 4x4, Kerlix, ABD and DAR was applied to the patient's left lower extremity. The patient was then reversed from anesthesia and returned to the postoperative anesthesia care unit with vital signs stable and vascular status intact. The patient handled the anesthesia as well as the procedure without significant complication. Postoperative orders as indicated in the patient's discharge chart.
== END 2023-08-01 12:39 | disposition home or self-care (01) ==
LOC: SDC 06:26
PROVIDERS: ATTEND Podiatrist Foot & Ankle Surgery
DX: M76.62 Achilles tendinitis, left leg (principal); M79.672 Pain in left foot; T81.31XA Disruption of external operation (surgical) wound, not elsewhere classified, initial encounter; L89.629 Pressure ulcer of left heel, unspecified stage; R26.2 Difficulty in walking, not elsewhere classified; I10 Essential (primary) hypertension
CPT/HCPCS: 11042; 13160; 15120; 36415; 80053; 82947; 85027; 85610; 85730; J1100; J1170; J1642; J2001; J2371; J2405; J2704; J3010; A9270-GY

== ENCOUNTER 2023-08-22 07:37 | Day surgery (SDC) | payer MEDICARE ==
[2023-08-22] MEDS ORDERED: Marcaine Mpf 0.5% Vial 30 Ml IJ ONE ×2 (07:38)
[2023-08-22] MEDS ORDERED: EXPAREL 133 MG/10 ML VIAL IJ ONE (07:38)
[2023-08-22] MEDS ORDERED: CEFAZOLIN 2 GM-D5W BAG** 2 GM/50 ML ML IV ONE (07:38)
[2023-08-22] MEDS ORDERED: celeBREX 100 MG ONE (07:38)
[2023-08-22] MEDS ORDERED: Lactated Ringers 1,000 ML IV ONE (07:39)
[2023-08-22] MEDS: celeBREX 100 MG PO ONE (07:40)
[2023-08-22] MEDS: TYLENOL EXTRA STRENGTH 500 MG PO ONE (07:40)
[2023-08-22] MEDS: Lactated Ringers 1,000 ML IV SCH (07:40)
[2023-08-22] MEDS: NEURONTIN PO ONE (07:40)
[2023-08-22] MEDS: Decadron 4 MG PO ONE (07:40)
[2023-08-22] MEDS: CEFAZOLIN 2 GM-D5W BAG** 2 GM/50 ML ML IV SCH (07:41)
[2023-08-22 07:56] VITALS: RESP 18
[2023-08-22 08:07] LABS: Absolute Neutrophil Ct (ANC) 6.17 x10^3/uL (1.4-6.9); BASOPHIL % 0.8 % (0.0-0.4); Basophil (Absolute #) 0.07 x10^3/uL (0-0.4); Eosinophil % 2.9 % (0.00-5.0); Eosinophil (Absolute #) 0.26 x10^3/uL (0-0.5); Hematocrit 42.2 % (35-47); Hemoglobin 13.6 g/dL (12.0-16.0); IMMATURE GRAN # 0.04 x10^3u/L (0.00-0.03); IMMATURE GRAN % 0.5 % (0.00-0.4); Lymphocyte (Absolute #) 1.55 x10^3/uL (1.0-4.6); Lymphocytes % 17.6 % (24.0-44.0); Mean Cell Volume 95.9 fL (78-100); Mean Corpuscular Hemoglobin 30.9 pg (26-32); Mean Corpuscular Hgb Concent. 32.2 g/dL (32-36); Mean Platelet Volume 9.6 fL (7.5-11.0); Monocyte (Absolute #) 0.73 x10^3/uL (0.0-1.3); Monocytes % 8.3 % (0.0-12.0); Neutrophil % 69.9 % (36.0-66.0); Platelet Count 220 x10^3/uL (150-450); Red Cell Distribution Width 13.3 % (11.5-14.0); White Blood Count 8.8 x10^3/uL (4.0-10.5)
[2023-08-22 08:54] LABS: ALBUMIN 3.9 g/dL (3.5-5.0); ANION GAP 8.7 MEQ/L (5-15); BILIRUBIN,TOTAL 0.6 mg/dL (0.2-1.3); Calcium 9.2 mg/dL (8.4-10.2); Creatinine 1 0.77 mg/dL (0.52-1.04); Direct Bilirubin 0.1 mg/dL (0.0-0.4); EST GLOMERULAR FILTRATION RATE 84.5 ML/MIN; Potassium 3.9 mmol/L (3.5-5.1); Total Protein 7.1 g/dL (6.3-8.2)
[2023-08-22] MEDS ORDERED: DIPRIVAN 200 MG/20 ML IV ONE (10:08)
[2023-08-22] MEDS ORDERED: SUBLIMAZE 100 MCG/2 ML ONE ×2 (10:09→11:54)
[2023-08-22] MEDS ORDERED: Versed 2 MG/2 ML Injection ONE (10:09)
[2023-08-22] MEDS ORDERED: Decadron 4 MG INJ ONE (10:10)
[2023-08-22] MEDS ORDERED: Zofran 4 MG/2 ML VIAL ONE (10:10)
[2023-08-22] MEDS ORDERED: Quelicin Fliptop 200 MG/10 ML ONE (10:12)
[2023-08-22] MEDS ORDERED: PHENYLEPHRINE HCL ONE (12:09)
[2023-08-22] MEDS ORDERED: TORAdol 30 mg Injection ONE (12:46)
--- NOTE | 2023-08-22 13:29 | XRAY ---
Indication: Removal left foot external fixator. Intraoperative fluoroscopy provided for 10 seconds. 3 digital spot images submitted for interpretation demonstrates tibia/fibula tunnel radiolucencies presumed iatrogenic. Visualized calcaneus markedly mottled in appearance with plantar orthopedic button. Correlate with intraoperative findings/report.
[2023-08-22 14:04] VITALS: O2SAT 93
[2023-08-22 14:12] VITALS: BP 126/84; PULSE 78; TEMP 97
--- NOTE | 2023-08-22 17:03 | XRAY ---
10 seconds of fluoroscopy was used in surgery for a removal of a left foot external fixator.
--- NOTE | 2023-08-25 08:07 | OP ---
SURGERY DATE: 08/22/2023 1156 PREOPERATIVE DIAGNOSES: 1) Osteomyelitis left calcaneus. 2) Achilles tendon rupture. 3) Diabetic foot ulcer. 4) Pressure injury to posterior calcaneus. 5) External fixation. 6) Pain left leg. POSTOPERATIVE DIAGNOSES: 1) Osteomyelitis left calcaneus. 2) Achilles tendon rupture. 3) Diabetic foot ulcer. 4) Pressure injury to posterior calcaneus. 5) External fixation. 6) Pain left leg. PROCEDURE: Removal of external fixator. SURGEON: Deep Page DPM. CERAMIC SAW TENDER: None. HEMOSTASIS: Pressure dressing. ESTIMATED BLOOD LOSS: Approximately 3 cc. MATERIALS: None. INJECTABLES: See anesthesia report for details. INDICATION FOR PROCEDURE: Marialuisa is a very pleasant 68-year-old female who presented back in May for concern over an infected Achilles tendon and a pressure ulceration. On immediate debridement, bone appeared to be involved and soft tissue anchor that was anchored into the bone was subsequently removed and bone biopsies were taken demonstrating osteomyelitis. The patient was on IV antibiotics. A repeat debridement took place which new bone biopsies were taken approximately four weeks after this incident demonstrating resolution of the osteomyelitis. Following that, a flexor hallucis longus tendon transfer, a peroneus brevis muscle flap and Integra Synthetic Skin Substitute was applied showing signs of excellent take and then a split thickness skin graft was then applied to the wound base which at this time taken beautifully. At this time, the patient is a good candidate for proceeding for the final stage of the procedures and removal of the external fixator. The patient understands all risks, complications and benefits of surgical intervention at this time including but not limited to infection, hematoma, seroma, possibility of delayed wound healing, nonwound healing, possible need for further surgical intervention at a later date. No guarantees were provided as to the outcome of surgical intervention at this time. It is at this time we have decided to proceed. DESCRIPTION OF PROCEDURE AND FINDINGS: The patient was brought into the postoperative anesthesia care unit prior to the procedure and provided a popliteal and saphenous block. Following this, the patient was brought in the operating room and placed on the operating room table. General anesthesia was administered until the patient was adequately sedated. The left lower extremity was prepped and draped in the typical sterile fashion and lowered onto the surgical field. At this time, the olive wires were then cut utilizing a electrical sign wirer and the external portion of the external fixator was then removed. Utilizing iodine, the wires were then once again prepped prior to being removed from each site respective to which side the olive was on. Following this, the foot was assessed and deemed to be in an adequate position albeit some weakness to the posterior chain muscle group. No stage of varus was identified so the peroneus brevis and peroneus longus tendon transfer was not performed. X-rays were taken demonstrating adequate bone quality although concern for significant osteopenia of the calcaneus was visualized. A well-padded posterior splint was applied to the patient's left lower extremity. The patient was then reversed from anesthesia and returned to the postoperative anesthesia care unit with vital signs stable and vascular status intact. The patient handled the anesthesia as well as the procedure without significant complication. Postoperative orders as indicated in the patient's discharge chart.
== END 2023-08-22 14:20 | disposition home or self-care (01) ==
LOC: SDC 07:37
PROVIDERS: ATTEND Podiatrist Foot & Ankle Surgery
DX: M86.9 Osteomyelitis, unspecified (principal); S86.012A Strain of left Achilles tendon, initial encounter; E11.621 Type 2 diabetes mellitus with foot ulcer; L89.629 Pressure ulcer of left heel, unspecified stage; Z97.8 Presence of other specified devices; M79.605 Pain in left leg
CPT/HCPCS: 20694; 36415; 64447; 64450; 73630; 76000; 76942; 80048; 80076; 82947; 85025; J0330; J0690; J1100; J1642; J1885; J2250; J2371; J2405; J2704; J3010; A9270-GY

== ENCOUNTER 2023-09-14 09:51 | Day surgery (SDC) | payer MEDICARE ==
[2023-09-14] MEDS ORDERED: CEFAZOLIN 2 GM-D5W BAG** 2 GM/50 ML ML IV ONE (10:50)
[2023-09-14] MEDS ORDERED: Lactated Ringers 1,000 ML IV ONE (10:50)
[2023-09-14] MEDS: CEFAZOLIN 2 GM-D5W BAG** 2 GM/50 ML ML IV SCH (10:53)
[2023-09-14] MEDS: Lactated Ringers 1,000 ML IV SCH (10:54)
[2023-09-14 11:02] VITALS: RESP 18
[2023-09-14 11:04] LABS: Hematocrit 44.7 % (35-47); Hemoglobin 14.7 g/dL (12.0-16.0); Mean Cell Volume 94.1 fL (78-100); Mean Corpuscular Hemoglobin 30.9 pg (26-32); Mean Corpuscular Hgb Concent. 32.9 g/dL (32-36); Platelet Count 218 x10^3/uL (150-450); Red Blood Count 4.75 x10^6/uL (4.1-5.4); White Blood Count 9.9 x10^3/uL (4.0-10.5)
[2023-09-14 11:15] LABS: ALBUMIN 4.1 g/dL (3.5-5.0); ANION GAP 11.6 MEQ/L (5-15); BILIRUBIN,TOTAL 0.9 mg/dL (0.2-1.3); Calcium 9.4 mg/dL (8.4-10.2); Creatinine 1 0.78 mg/dL (0.52-1.04); EST GLOMERULAR FILTRATION RATE 83.2 ML/MIN; Total Protein 7.3 g/dL (6.3-8.2)
[2023-09-14 11:23] LABS: Potassium 4.4 mmol/L (3.5-5.1)
[2023-09-14] MEDS ORDERED: DIPRIVAN 200 MG/20 ML IV ONE (13:01)
[2023-09-14] MEDS ORDERED: Versed 2 MG/2 ML Injection ONE (13:02)
[2023-09-14] MEDS ORDERED: Xylocaine 1% Vial 30 ML PF IJ ONE (13:02)
[2023-09-14] MEDS ORDERED: Marcaine Mpf 0.5% Vial 30 Ml ONE (13:02)
[2023-09-14] MEDS ORDERED: SUBLIMAZE 100 MCG/2 ML ONE ×2 (13:02→13:39)
--- NOTE | 2023-09-14 13:41 | XRAY ---
Indication: Left calcaneal bone biopsy. Intraoperative fluoroscopy provided for 5 seconds. 4 digital spot images submitted for interpretation demonstrates bone biopsy needle tip projecting mid calcaneus. Correlate with intraoperative findings/report.
--- NOTE | 2023-09-14 13:56 | XRAY ---
5 seconds of fluoroscopy was used in surgery for a left calcaneal bone biopsy.
[2023-09-14 14:26] VITALS: O2SAT 97
[2023-09-14 14:38] VITALS: BP 128/86; PULSE 78; TEMP 97.3
--- NOTE | 2023-09-15 11:34 | OP ---
SURGERY DATE: 09/14/2023 SURGERY TIME: 1301 PREOPERATIVE DIAGNOSIS: 1. OSTEOMYELITIS LEFT CALCANEUS. POSTOPERATIVE DIAGNOSIS: 1. OSTEOMYELITIS LEFT CALCANEUS. PROCEDURE: 1. Bone biopsy trocar left calcaneus. SURGEON: Deep Page D.P.M. MANAGER OF HOSPITAL: None. ANESTHESIA: Monitored anesthesia care. HEMOSTASIS: A pressure dressing. ESTIMATED BLOOD LOSS: Approximately 2 cc. MATERIALS: 3-0 Nylon. INJECTABLES: 10 cc of a 1:1 mixture of 1% Lidocaine plain and 0.5% Bupivicaine plain injected in a sural block type fashion. INDICATIONS FOR PROCEDURE: Patient is a very well know patient with a recent history of osteomyelitis to the left calcaneus after having a dehiscence of a wound at the posterior aspect of the heel from a surgical site from a previous surgery that was infected many years ago. As a result, patient did have to have her Achilles tendon resected, multiple bone debridements, a muscle flap performed from her peroneus brevis as well as a delayed closure and skin grafting. The patient has made significant progress. However, on inspection of radiographs following her final procedure, did show that there was some evidence of degenerative changes within the bone. To be on the safe side, secondary to the amount of procedures that she had and the concern for osteomyelitis, and MRI was taken suggestive of osteomyelitis. However, patient did have 2 bone biopsies prior to indicating that bone infection was absent before proceeding with definitive closure. Today's procedure is insurance that we did not leave any bone infection present to the calcaneus. As a result, patient has been made aware of all risks, complications, and benefits of surgical intervention at this time. The patient seemingly clinically does not have any significant indicators other than some residual wound at the posterior heel that is relatively small in size compared to where it was before and the thought is that this is likely disuse osteopenia for having been off of the calcaneus and the repeat debridements over the course of the last 3 months. From that standpoint, the patient understands all risk, complications, and benefits. Is eager to proceed and get results to continue on with weight-bearing at this time. Plenty of time was allowed for the patient to ask questions which were answered to her apparent satisfaction. It is at this time, we decided to proceed. DESCRIPTION OF PROCEDURE: The patient was brought into the OR. Placed on the OR table in the supine position. At this time, monitored anesthesia care was administered until the patient was adequately sedated. At this time, the left lower extremity was prepped and draped in the typical sterile fashion and lowered onto the surgical field. At this time, a 10 cc block was provided proximal to the bone biopsy site at the lateral aspect of the calcaneus primarily blocking the sural nerve distribution. From that standpoint, a 15 blade made an incision and blunt dissection was carried down to the level of the calcaneus. A Jamshidi trocar needle was then utilized to remove a small portion of bone from the calcaneus which was handed off the field for pathological assessment. At this time, copious amounts of sterile saline were utilized to flush the surgical site. 3-0 Nylon was utilized to coapt the skin in a simple interrupted type fashion. A dressing consisting of Betadine, Adaptic, 4 X 4, Kerlix, ABD, and Demarcus was applied to the patient's left lower extremity. The patient was then reversed from anesthesia and returned to the PACU with vital signs stable and vascular status intact. The patient handled the anesthesia as well as the procedure without significant complication. Postoperative orders as indicated in the patient's discharge chart.
== END 2023-09-14 14:44 | disposition home or self-care (01) ==
LOC: SDC 09:51
PROVIDERS: ATTEND Podiatrist Foot & Ankle Surgery
DX: M86.9 Osteomyelitis, unspecified (principal)
CPT/HCPCS: 20240; 36415; 73620; 76000; 80053; 85027; J0690; J2001; J2250; J2704; J3010